=== PATIENT | female | born 1935 | race Caucasian/White ===

== ENCOUNTER 2019-08-30 01:35 | Observation (INO) | payer MEDICARE, MEDICAID, SELFPAY ==
[2019-08-30] VITALS (23 sets, daily range): BP systolic 98–194; BP diastolic 62–101; PULSE 84–119; RESP 14–25; TEMP 36.7–37.3; O2SAT 85–100; BMI 32.3
--- NOTE | 2019-08-30 01:46 | XR_ITS ---
WS: [id number] PORTABLE CHEST HISTORY: vomiting blood COMPARISON: 08/30/2019 Hyperexpanded lungs with slight elevation of the LEFT hemidiaphragm. No pneumonia. Normal vasculature . No pleural effusion or pneumothorax. Cardiac size: Normal. Mediastinum/Aorta: Mild atherosclerosis aorta. Osteopenia. High riding humeral heads. Increased air in the visualized GI tract in the upper abdomen. XR/XR chest 1V portable [id number] IMPRESSION: Chronic emphysema and ectatic thoracic aorta. No pneumonia.
--- NOTE | 2019-08-30 01:46 | CTR_ITS ---
PROCEDURE INFORMATION: Exam: CT Abdomen And Pelvis With Contrast Exam date and time: 08/30/2019 1:51 AM Age: 84 years old Clinical indication: Bloating; Additional info: Vomiting blood, bloated TECHNIQUE: Imaging protocol: Computed tomography of the abdomen and pelvis with intravenous contrast. Radiation optimization: All CT scans at this facility use at least one of these dose optimization techniques: automated exposure control; mA and/or kV adjustment per patient size (includes targeted exams where dose is matched to clinical indication); or iterative reconstruction. Contrast material: VISI; Contrast volume: 95 ml; Contrast route: INTRAVENOUS (IV); COMPARISON: No relevant prior studies available. RADIATION DOSE METRICS: Total DLP (mGy-cm): 1167.68 FINDINGS: Liver: No mass. Gallbladder and bile ducts: No calcified stones. No ductal dilation. Pancreas: No ductal dilation. Spleen: No splenomegaly. Adrenals: No mass. Kidneys and ureters: No hydronephrosis. Stomach and bowel: Distention of the colon, predominantly the rectosigmoid colon without evidence of obstruction. Findings may be due to ileus. Appendix: The appendix is not identified. Intraperitoneal space: No free air. No significant fluid collection. Vasculature: Atherosclerotic changes of the aorta. Lymph nodes: No enlarged lymph nodes. Bladder: Unremarkable as visualized. Reproductive: Status post hysterectomy. Bones/joints: Right hip prosthesis noted Multilevel degenerative changes noted. Soft tissues: Unremarkable. CT/CT abdomen pelvis w con* [id number] IMPRESSION: Distention of the colon, predominantly the rectosigmoid colon without evidence of obstruction. Findings may be due to ileus. Radiation Dose CTDIVOL = (mGy): DLP = 1167.68 (mGy-cm)
--- NOTE | 2019-08-30 01:48 | ED_ITS ---
Documented by User: PRIMO Pandey 08/30/19 01:49 HPI - GI Bleed General: Chief complaint: GI Bleed Stated complaint: UPPER GI BLEED Time Seen by Provider: 08/30/19 01:46 History of Present Illness: HPI Narrative: Patient arrives via ambulance with complaints of coffee-ground emesis earlier tonight states she has been sick she just coughed up some or vomited up some coffee-ground looking stuff denies any problems presently feels fine MD complaint: coffee ground emesis Onset (ago): minute(s) Associated symptoms: Reports no associated symptoms and vomiting; Denies abdominal pain, chills, easy bruising, fever(s), headache(s), nausea or rash Review of Systems Const: Denies: fever(s), chills or body aches Eyes: Denies: change in vision or blurry vision ENMT: Denies: throat pain or nasal congestion Card: Denies: chest pain or dyspnea on exertion Resp: Denies: dyspnea, productive cough or non-productive cough GI: Reports: vomiting and coffee ground emesis; Denies: abdominal pain or nausea Musc: Denies: extremity pain Skin/Breast: Denies: rash Neuro: Denies: headache(s) Psych: Denies: anxiety or depression David/Lymph: Denies: easy bruising PFSH ED PFSH: Medical History Atrial fibrillation Dementia Diabetes mellitus Currently diet controlled GERD (gastroesophageal reflux disease) Hypertension Iron deficiency Surgical History History of appendectomy Family History (Updated 08/30/19 @ 10:43 by Melissa Solares DO) Mother Diabetes Father Cancer Social History (Updated 08/30/19 @ 10:44 by Melissa Solares DO) Smoking and tobacco status: never smoked Alcohol intake: never Substance/Drug Use: never Lives independently: No Housing: Retirement Physical Exam Const: COMMON NORMALS: no acute distress, average body habitus and patient or iented x3 HENMT: COMMON NORMALS: normocephalic HEAD & SCALP: normal to inspection and normocephalic FACE & SINUS: normal facial exam Eye: COMMON NORMALS: conjunctivae normal GENERAL EYE: appearance normal, both eyes and all related structures CONJUNCTIVA: Yes conjunctivae normal Neck/C-Spine: COMMON NORMALS: no JVD Chest: COMMONS NORMALS: normal inspection of the chest Resp: COMMON NORMALS: normal respiratory effort and clear to auscultation bilaterally AUSCULTATION: clear to auscultation bilaterally Cardio: COMMON NORMALS: no JVD, regular rate and regular rhythm RATE: regular rate RHYTHM: regular rhythm GI: INSPECTION: Yes abdominal distension AUSCULTATION: Yes Hypoactive bowel sounds present PALPATION: Yes Firmness to palpation present (GI) PERCUSSION: tympanic to percussion Extremity: COMMON NORMALS: normal to inspection and full ROM Neuro: COMMON NORMALS: patient oriented x3 Course Vital Signs: Vital signs: Vital Signs Temperature 98.6 F 08/31/19 00:00 Pulse Rate 91 08/31/19 00:00 Respiratory Rate 20 H 08/31/19 00:00 Blood Pressure 138/70 08/31/19 00:00 Pulse Oximetry 96 08/31/19 00:00 MDM - GI Bleed Lab Data: Labs: Lab Results 08/30/19 08/30/19 08/30/19 Range/Units 01:43 01:43 01:43 WBC 12.3 H (4.0-10.0) 10^3/ uL RBC 4.50 (4.1-5.3) 10^6/u L Hgb 12.7 (11.5-15.3) g/dL Hct 38.9 (37.0-47.0) % MCV 86.4 (81-99) fL MCH 28.2 (28.0-34.0) pg MCHC 32.6 (30.0-36.0) g/dL RDW 14.1 (12.1-15.1) % Plt Count 275 (130-400) 10^3/c mm MPV 10.8 H (7.4-10.4) fL Neut % (Auto) 71.8 % Lymph % (Auto) 16.5 % [place] % (Auto) 9.4 % Eos % (Auto) 1.5 % Baso % (Auto) 0.5 % Neut # (Auto) 8.8 H (1.8-7.7) 10^3/u L Lymph # (Auto) 2.0 (0.8-4.8) 10^3/u L [place] # (Auto) 1.2 H (0.2-0.9) 10^3/u L Eos # (Auto) 0.2 (0.0-0.8) 10^3/u L Baso # (Auto) 0.1 (0.0-0.1) 10^3/u L Nucleated RBC % (a uto) 0 % Nucleated RBCs # 0.0 /100WBC PT 13.80 H (10.5-13.3) SECO NDS INR 1.03 (0.8-1.2) Sodium 136 (136-145) mmol/L Potassium 2.4 L* (3.5-5.1) mmol/L Chloride 96 L (98-107) mmol/L Carbon Dioxide 30 H (22-29) mmol/L Anion Gap 12.4 (5-19) BUN 17 (8-23) mg/dL Creatinine 0.7 (0.5-0.9) mg/dL Glucose 291 H (65-115) mg/dL Calculated Osmolal ity 289 (285-295) mOsm/k g Lactate (0.5-2.2) mmol/L Calcium 8.9 (8.5-10.5) mg/dL Total Bilirubin 0.3 (0.15-1.2) mg/dL AST 12 (0-32) U/L ALT 11 (0-33) U/L Alkaline Phosphata se 99 (35-105) IU/L Total Protein 6.8 (6.6-8.7) g/dL Albumin 3.8 (3.5-5.2) g/dL Globulin 3.0 (1.3-4.6) g/dL Urine Color (Yellow) Urine Appearance (CLEAR) Urine pH (5-7) Ur Specific Gravit y (1.005-1.030) Urine Protein (Negative) Urine Glucose (UA) (Normal) Urine Ketones (Negative) Urine Blood (Negative) Urine Nitrate (Negative) Urine Bilirubin (NEGATIVE) Urine Urobilinogen (Negative) mg/dL Ur Leukocyte Debbi ase (Negative) Urine RBC (0-2) /hpf Urine WBC (0-5) /hpf Ur Squamous Epith Cells (0-5) Amorphous Sediment Urine Bacteria (NONE) Rho(D) Type Antibody Screen 08/30/19 08/30/1908/29/20 Range/Units 01:43 01:45 03:24 WBC (4.0-10.0) 10^3/ uL RBC (4.1-5.3) 10^6/u L Hgb (11.5-15.3) g/dL Hct (37.0-47.0) % MCV (81-99) fL MCH (28.0-34.0) pg MCHC (30.0-36.0) g/dL RDW (12.1-15.1) % Plt Count (130-400) 10^3/c mm MPV (7.4-10.4) fL Neut % (Auto) % Lymph % (Auto) % [place] % (Auto) % Eos % (Auto) % Baso % (Auto) % Neut # (Auto) (1.8-7.7) 10^3/u L Lymph # (Auto) (0.8-4.8) 10^3/u L [place] # (Auto) (0.2-0.9) 10^3/u L Eos # (Auto) (0.0-0.8) 10^3/u L Baso # (Auto) (0.0-0.1) 10^3/u L Nucleated RBC % (a uto) % Nucleated RBCs # /100WBC PT (10.5-13.3) SECO NDS INR (0.8-1.2) Sodium (136-145) mmol/L Potassium (3.5-5.1) mmol/L Chloride (98-107) mmol/L Carbon Dioxide (22-29) mmol/L Anion Gap (5-19) BUN (8-23) mg/dL Creatinine (0.5-0.9) mg/dL Glucose (65-115) mg/dL Calculated Osmolal ity (285-295) mOsm/k g Lactate 1.5 (0.5-2.2) mmol/L Calcium (8.5-10.5) mg/dL Total Bilirubin (0.15-1.2) mg/dL AST (0-32) U/L ALT (0-33) U/L Alkaline Phosphata se (35-105) IU/L Total Protein (6.6-8.7) g/dL Albumin (3.5-5.2) g/dL Globulin (1.3-4.6) g/dL Urine Color Yellow (Yellow) Urine Appearance Cloudy (CLEAR) Urine pH 5 (5-7) Ur Specific Gravit y 1.015 (1.005-1.030) Urine Protein Neg (Negative) Urine Glucose (UA) 4+ H (Normal) Urine Ketones Negative (Negative) Urine Blood Neg (Negative) Urine Nitrate Negative (Negative) Urine Bilirubin Neg (NEGATIVE) Urine Urobilinogen Norm (Negative) mg/dL Ur Leukocyte Debbi ase Negative (Negative) Urine RBC 0-4 H (0-2) /hpf Urine WBC 0-4 H (0-5) /hpf Ur Squamous Epith Cells 10-15 H (0-5) Amorphous Sediment Not Reportable Urine Bacteria 2+ H (NONE) Rho(D) Type Negative Antibody Screen Negative 08/30/19 Range/Units 08:35 WBC (4.0-10.0) 10^3/ uL RBC (4.1-5.3) 10^6/u L Hgb (11.5-15.3) g/dL Hct (37.0-47.0) % MCV (81-99) fL MCH (28.0-34.0) pg MCHC (30.0-36.0) g/dL RDW (12.1-15.1) % Plt Count (130-400) 10^3/c mm MPV (7.4-10.4) fL Neut % (Auto) % Lymph % (Auto) % [place] % (Auto) % Eos % (Auto) % Baso % (Auto) % Neut # (Auto) (1.8-7.7) 10^3/u L Lymph # (Auto) (0.8-4.8) 10^3/u L [place] # (Auto) (0.2-0.9) 10^3/u L Eos # (Auto) (0.0-0.8) 10^3/u L Baso # (Auto) (0.0-0.1) 10^3/u L Nucleated RBC % (a uto) % Nucleated RBCs # /100WBC PT (10.5-13.3) SECO NDS INR (0.8-1.2) Sodium 138 (136-145) mmol/L Potassium 3.5 (3.5-5.1) mmol/L Chloride 101 (98-107) mmol/L Carbon Dioxide 29 (22-29) mmol/L Anion Gap 11.5 (5-19) BUN 16 (8-23) mg/dL Creatinine 0.7 (0.5-0.9) mg/dL Glucose 256 H (65-115) mg/dL Calculated Osmolal ity 291 (285-295) mOsm/k g Lactate (0.5-2.2) mmol/L Calcium 8.5 (8.5-10.5) mg/dL Total Bilirubin (0.15-1.2) mg/dL AST (0-32) U/L ALT (0-33) U/L Alkaline Phosphata se (35-105) IU/L Total Protein (6.6-8.7) g/dL Albumin (3.5-5.2) g/dL Globulin (1.3-4.6) g/dL Urine Color (Yellow) Urine Appearance (CLEAR) Urine pH (5-7) Ur Specific Gravit y (1.005-1.030) Urine Protein (Negative) Urine Glucose (UA) (Normal) Urine Ketones (Negative) Urine Blood (Negative) Urine Nitrate (Negative) Urine Bilirubin (NEGATIVE) Urine Urobilinogen (Negative) mg/dL Ur Leukocyte Debbi ase (Negative) Urine RBC (0-2) /hpf Urine WBC (0-5) /hpf Ur Squamous Epith Cells (0-5) Amorphous Sediment Urine Bacteria (NONE) Rho(D) Type Antibody Screen Discharge Plan Discharge Admit Provider: Melissa Solares Discharge Date/Time: 08/30/19 15:37 Sign Out Sign Out Data: Patient Sign Out occurred on 08/30/19 at 07:25. Patient's care was discussed, and care was transferred from to Ed Foster DO. Coding Level of Care Code ED Assistant Media Planner for Chg Fwd Exam Comprehensive Documented by User: Zaid Franco DO 08/30/19 06:10 HPI - GI Bleed General: Chief complaint: GI Bleed Stated complaint: UPPER GI BLEED Time Seen by Provider: 08/30/19 01:46 PFS ED PFSH: Medical History Atrial fibrillation Dementia Diabetes mellitus Currently diet controlled GERD (gastroesophageal reflux disease) Hypertension Iron deficiency Surgical History History of appendectomy Family History (Updated 08/30/19 @ 10:43 by Melissa Solares DO) Mother Diabetes Father Cancer Social History (Updated 08/30/19 @ 10:44 by Melissa Solares DO) Smoking and tobacco status: never smoked Alcohol intake: never Substance/Drug Use: never Lives independently: No Housing: Retirement Course Vital Signs: Vital signs: Vital Signs Temperature 98.6 F 08/31/19 00:00 Pulse Rate 91 08/31/19 00:00 Respiratory Rate 20 H 08/31/19 00:00 Blood Pressure 138/70 08/31/19 00:00 Pulse Oximetry 96 08/31/19 00:00 MDM - GI Bleed MDM Narrative: Medical decision making narrative: 84-year-old female checked out to me by PRIMO Sherman. I have seen the patient as well. The complaint from the long term was possibly some coffee-ground type emesis. She is not vomited since she has been here. Her belly is quite rotund and distended. It is not overly tender. Her potassium is 2.4. She has a mild leukocytosis. Her potassium is being repleted with 40 mEq of KCl IV. CT reveals a very largely distended rectosigmoid colon without definite evidence of mechanical obstruction. NG tube is been placed. She is getting an enema in the ER. If this produces results, and distention appears on KUB with improvement in her potassium, she will likely go back to the long term. Repeat BMP is due at 7am when KCL is finished. She has received enemax1 ordering milk and molases. She'll be checked out to Dr. Foster at shift change. Lab Data: Labs: Lab Results 08/30/19 08/30/19 08/30/19 Range/Units 01:43 01:43 01:43 WBC 12.3 H (4.0-10.0) 10^3/ uL RBC 4.50 (4.1-5.3) 10^6/u L Hgb 12.7 (11.5-15.3) g/dL Hct 38.9 (37.0-47.0) % MCV 86.4 (81-99) fL MCH 28.2 (28.0-34.0) pg MCHC 32.6 (30.0-36.0) g/dL RDW 14.1 (12.1-15.1) % Plt Count 275 (130-400) 10^3/c mm MPV 10.8 H (7.4-10.4) fL Neut % (Auto) 71.8 % Lymph % (Auto) 16.5 % [place] % (Auto) 9.4 % Eos % (Auto) 1.5 % Baso % (Auto) 0.5 % Neut # (Auto) 8.8 H (1.8-7.7) 10^3/u L Lymph # (Auto) 2.0 (0.8-4.8) 10^3/u L [place] # (Auto) 1.2 H (0.2-0.9) 10^3/u L Eos # (Auto) 0.2 (0.0-0.8) 10^3/u L Baso # (Auto) 0.1 (0.0-0.1) 10^3/u L Nucleated RBC % (a uto) 0 % Nucleated RBCs # 0.0 /100WBC PT 13.80 H (10.5-13.3) SECO NDS INR 1.03 (0.8-1.2) Sodium 136 (136-145) mmol/L Potassium 2.4 L* (3.5-5.1) mmol/L Chloride 96 L (98-107) mmol/L Carbon Dioxide 30 H (22-29) mmol/L Anion Gap 12.4 (5-19) BUN 17 (8-23) mg/dL Creatinine 0.7 (0.5-0.9) mg/dL Glucose 291 H (65-115) mg/dL Calculated Osmolal ity 289 (285-295) mOsm/k g Lactate (0.5-2.2) mmol/L Calcium 8.9 (8.5-10.5) mg/dL Total Bilirubin 0.3 (0.15-1.2) mg/dL AST 12 (0-32) U/L ALT 11 (0-33) U/L Alkaline Phosphata se 99 (35-105) IU/L Total Protein 6.8 (6.6-8.7) g/dL Albumin 3.8 (3.5-5.2) g/dL Globulin 3.0 (1.3-4.6) g/dL Urine Color (Yellow) Urine Appearance (CLEAR) Urine pH (5-7) Ur Specific Gravit y (1.005-1.030) Urine Protein (Negative) Urine Glucose (UA) (Normal) Urine Ketones (Negative) Urine Blood (Negative) Urine Nitrate (Negative) Urine Bilirubin (NEGATIVE) Urine Urobilinogen (Negative) mg/dL Ur Leukocyte Debbi ase (Negative) Urine RBC (0-2) /hpf Urine WBC (0-5) /hpf Ur Squamous Epith Cells (0-5) Amorphous Sediment Urine Bacteria (NONE) Rho(D) Type Antibody Screen 08/30/19 08/30/19 08/30/19 Range/Units 01:43 01:45 03:24 WBC (4.0-10.0) 10^3/ uL RBC (4.1-5.3) 10^6/u L Hgb (11.5-15.3) g/dL Hct (37.0-47.0) % MCV (81-99) fL MCH (28.0-34.0) pg MCHC (30.0-36.0) g/dL RDW (12.1-15.1) % Plt Count (130-400) 10^3/c mm MPV (7.4-10.4) fL Neut % (Auto) % Lymph % (Auto) % [place] % (Auto) % Eos % (Auto) % Baso % (Auto) % Neut # (Auto) (1.8-7.7) 10^3/u L Lymph # (Auto) (0.8-4.8) 10^3/u L [place] # (Auto) (0.2-0.9) 10^3/u L Eos # (Auto) (0.0-0.8) 10^3/u L Baso # (Auto) (0.0-0.1) 10^3/u L Nucleated RBC % (a uto) % Nucleated RBCs # /100WBC PT (10.5-13.3) SECO NDS INR (0.8-1.2) Sodium (136-145) mmol/L Potassium (3.5-5.1) mmol/L Chloride (98-107) mmol/L Carbon Dioxide (22-29) mmol/L Anion Gap (5-19) BUN (8-23) mg/dL Creatinine (0.5-0.9) mg/dL Glucose (65-115) mg/dL Calculated Osmolal ity (285-295) mOsm/k g Lactate 1.5 (0.5-2.2) mmol/L Calcium (8.5-10.5) mg/dL Total Bilirubin (0.15-1.2) mg/dL AST (0-32) U/L ALT (0-33) U/L Alkaline Phosphata se (35-105) IU/L Total Protein (6.6-8.7) g/dL Albumin (3.5-5.2) g/dL Globulin (1.3-4.6) g/dL Urine Color Yellow (Yellow) Urine Appearance Cloudy (CLEAR) Urine pH 5 (5-7) Ur Specific Gravit y 1.015 (1.005-1.030) Urine Protein Neg (Negative) Urine Glucose (UA) 4+ H (Normal) Urine Ketones Negative (Negative) Urine Blood Neg (Negative) Urine Nitrate Negative (Negative) Urine Bilirubin Neg (NEGATIVE) Urine Urobilinogen Norm (Negative) mg/dL Ur Leukocyte Debbi ase Negative (Negative) Urine RBC 0-4 H (0-2) /hpf Urine WBC 0-4 H (0-5) /hpf Ur Squamous Epith Cells 10-15 H (0-5) Amorphous Sediment Not Reportable Urine Bacteria 2+ H (NONE) Rho(D) Type Negative Antibody Screen Negative 08/30/19 Range/Units 08:35 WBC (4.0-10.0) 10^3/ uL RBC (4.1-5.3) 10^6/u L Hgb (11.5-15.3) g/dL Hct (37.0-47.0) % MCV (81-99) fL MCH (28.0-34.0) pg MCHC (30.0-36.0) g/dL RDW (12.1-15.1) % Plt Count (130-400) 10^3/c mm MPV (7.4-10.4) fL Neut % (Auto) % Lymph % (Auto) % [place] % (Auto) % Eos % (Auto) % Baso % (Auto) % Neut # (Auto) (1.8-7.7) 10^3/u L Lymph # (Auto) (0.8-4.8) 10^3/u L [place] # (Auto) (0.2-0.9) 10^3/u L Eos # (Auto) (0.0-0.8) 10^3/u L Baso # (Auto) (0.0-0.1) 10^3/u L Nucleated RBC % (a uto) % Nucleated RBCs # /100WBC PT (10.5-13.3) SECO NDS INR (0.8-1.2) Sodium 138 (136-145) mmol/L Potassium 3.5 (3.5-5.1) mmol/L Chloride 101 (98-107) mmol/L Carbon Dioxide 29 (22-29) mmol/L Anion Gap 11.5 (5-19) BUN 16 (8-23) mg/dL Creatinine 0.7 (0.5-0.9) mg/dL Glucose 256 H (65-115) mg/dL Calculated Osmolal ity 291 (285-295) mOsm/k g Lactate (0.5-2.2) mmol/L Calcium 8.5 (8.5-10.5) mg/dL Total Bilirubin (0.15-1.2) mg/dL AST (0-32) U/L ALT (0-33) U/L Alkaline Phosphata se (35-105) IU/L Total Protein (6.6-8.7) g/dL Albumin (3.5-5.2) g/dL Globulin (1.3-4.6) g/dL Urine Color (Yellow) Urine Appearance (CLEAR) Urine pH (5-7) Ur Specific Gravit y (1.005-1.030) Urine Protein (Negative) Urine Glucose (UA) (Normal) Urine Ketones (Negative) Urine Blood (Negative) Urine Nitrate (Negative) Urine Bilirubin (NEGATIVE) Urine Urobilinogen (Negative) mg/dL Ur Leukocyte Debbi ase (Negative) Urine RBC (0-2) /hpf Urine WBC (0-5) /hpf Ur Squamous Epith Cells (0-5) Amorphous Sediment Urine Bacteria (NONE) Rho(D) Type Antibody Screen Discharge Plan Discharge Admit Provider: Melissa Solares Discharge Date/Time: 08/30/19 15:37 Sign Out Sign Out Data: Patient Sign Out occurred on 08/30/19 at 07:25. Patient's care was discussed, and care was transferred from to Ed Foster DO. Coding Level of Care Code ED Assistant Media Planner for Chg Fwd Exam Comprehensive Documented by User: Ed Foster DO 08/31/19 06:05 HPI - GI Bleed General: Chief complaint: GI Bleed Stated complaint: UPPER GI BLEED Time Seen by Provider: 08/30/19 01:46 PFS ED PFSH: Medical History Atrial fibrillation Dementia Diabetes mellitus Currently diet controlled GERD (gastroesophageal reflux disease) Hypertension Iron deficiency Surgical History History of appendectomy Family History (Updated 08/30/19 @ 10:43 by Melissa Solares DO) Mother Diabetes Father Cancer Social History (Updated 08/30/19 @ 10:44 by Melissa Solares DO) Smoking and tobacco status: never smoked Alcohol intake: never Substance/Drug Use: never Lives independently: No Housing: Retirement Course Vital Signs: Vital signs: Vital Signs Temperature 98.6 F 08/31/19 00:00 Pulse Rate 91 08/31/19 00:00 Respiratory Rate 20 H 08/31/19 00:00 Blood Pressure 138/70 08/31/19 00:00 Pulse Oximetry 96 08/31/19 00:00 MDM - GI Bleed MDM Narrative: Medical decision making narrative: NG and enemas did not decompress the abdomen. Is to have potassium is increased. We will go ahead and put her on [place] with a rectal tube discussed with hospitalist and general surgery they are both in agreement orders written. Lab Data: Labs: Lab Results 08/30/19 08/30/19 08/30/19 Range/Units 01:43 01:43 01:43 WBC 12.3 H (4.0-10.0) 10^3/ uL RBC 4.50 (4.1-5.3) 10^6/u L Hgb 12.7 (11.5-15.3) g/dL Hct 38.9 (37.0-47.0) % MCV 86.4 (81-99) fL MCH 28.2 (28.0-34.0) pg MCHC 32.6 (30.0-36.0) g/dL RDW 14.1 (12.1-15.1) % Plt Count 275 (130-400) 10^3/c mm MPV 10.8 H (7.4-10.4) fL Neut % (Auto) 71.8 % Lymph % (Auto) 16.5 % [place] % (Auto) 9.4 % Eos % (Auto) 1.5 % Baso % (Auto) 0.5 % Neut # (Auto) 8.8 H (1.8-7.7) 10^3/u L Lymph # (Auto) 2.0 (0.8-4.8) 10^3/u L [place] # (Auto) 1.2 H (0.2-0.9) 10^3/u L Eos # (Auto) 0.2 (0.0-0.8) 10^3/u L Baso # (Auto) 0.1 (0.0-0.1) 10^3/u L Nucleated RBC % (a uto) 0 % Nucleated RBCs # 0.0 /100WBC PT 13.80 H (10.5-13.3) SECO NDS INR 1.03 (0.8-1.2) Sodium 136 (136-145) mmol/L Potassium 2.4 L* (3.5-5.1) mmol/L Chloride 96 L (98-107) mmol/L Carbon Dioxide 30 H (22-29) mmol/L Anion Gap 12.4 (5-19) BUN 17 (8-23) mg/dL Creatinine 0.7 (0.5-0.9) mg/dL Glucose 291 H (65-115) mg/dL Calculated Osmolal ity 289 (285-295) mOsm/k g Lactate (0.5-2.2) mmol/L Calcium 8.9 (8.5-10.5) mg/dL Total Bilirubin 0.3 (0.15-1.2) mg/dL AST 12 (0-32) U/L ALT 11 (0-33) U/L Alkaline Phosphata se 99 (35-105) IU/L Total Protein 6.8 (6.6-8.7) g/dL Albumin 3.8 (3.5-5.2) g/dL Globulin 3.0 (1.3-4.6) g/dL Urine Color (Yellow) Urine Appearance (CLEAR) Urine pH (5-7) Ur Specific Gravit y (1.005-1.030) Urine Protein (Negative) Urine Glucose (UA) (Normal) Urine Ketones (Negative) Urine Blood (Negative) Urine Nitrate (Negative) Urine Bilirubin (NEGATIVE) Urine Urobilinogen (Negative) mg/dL Ur Leukocyte Debbi ase (Negative) Urine RBC (0-2) /hpf Urine WBC (0-5) /hpf Ur Squamous Epith Cells (0-5) Amorphous Sediment Urine Bacteria (NONE) Rho(D) Type Antibody Screen 08/30/19 08/30/19 08/30/19 Range/Units 01:43 01:45 03:24 WBC (4.0-10.0) 10^3/ uL RBC (4.1-5.3) 10^6/u L Hgb (11.5-15.3) g/dL Hct (37.0-47.0) % MCV (81-99) fL MCH (28.0-34.0) pg MCHC (30.0-36.0) g/dL RDW (12.1-15.1) % Plt Count (130-400) 10^3/c mm MPV (7.4-10.4) fL Neut % (Auto) % Lymph % (Auto) % [place] % (Auto) % Eos % (Auto) % Baso % (Auto) % Neut # (Auto) (1.8-7.7) 10^3/u L Lymph # (Auto) (0.8-4.8) 10^3/u L [place] # (Auto) (0.2-0.9) 10^3/u L Eos # (Auto) (0.0-0.8) 10^3/u L Baso # (Auto) (0.0-0.1) 10^3/u L Nucleated RBC % (a uto) % Nucleated RBCs # /100WBC PT (10.5-13.3) SECO NDS INR (0.8-1.2) Sodium (136-145) mmol/L Potassium (3.5-5.1) mmol/L Chloride (98-107) mmol/L Carbon Dioxide (22-29) mmol/L Anion Gap (5-19) BUN (8-23) mg/dL Creatinine (0.5-0.9) mg/dL Glucose (65-115) mg/dL Calculated Osmolal ity (285-295) mOsm/k g Lactate 1.5 (0.5-2.2) mmol/L Calcium (8.5-10.5) mg/dL Total Bilirubin (0.15-1.2) mg/dL AST (0-32) U/L ALT (0-33) U/L Alkaline Phosphata se (35-105) IU/L Total Protein (6.6-8.7) g/dL Albumin (3.5-5.2) g/dL Globulin (1.3-4.6) g/dL Urine Color Yellow (Yellow) Urine Appearance Cloudy (CLEAR) Urine pH 5 (5-7) Ur Specific Gravit y 1.015 (1.005-1.030) Urine Protein Neg (Negative) Urine Glucose (UA) 4+ H (Normal) Urine Ketones Negative (Negative) Urine Blood Neg (Negative) Urine Nitrate Negative (Negative) Urine Bilirubin Neg (NEGATIVE) Urine Urobilinogen Norm (Negative) mg/dL Ur Leukocyte Debbi ase Negative (Negative) Urine RBC 0-4 H (0-2) /hpf Urine WBC 0-4 H (0-5) /hpf Ur Squamous Epith Cells 10-15 H (0-5) Amorphous Sediment Not Reportable Urine Bacteria 2+ H (NONE) Rho(D) Type Negative Antibody Screen Negative 08/30/19 Range/Units 08:35 WBC (4.0-10.0) 10^3/ uL RBC (4.1-5.3) 10^6/u L Hgb (11.5-15.3) g/dL Hct (37.0-47.0) % MCV (81-99) fL MCH (28.0-34.0) pg MCHC (30.0-36.0) g/dL RDW (12.1-15.1) % Plt Count (130-400) 10^3/c mm MPV (7.4-10.4) fL Neut % (Auto) % Lymph % (Auto) % [place] % (Auto) % Eos % (Auto) % Baso % (Auto) % Neut # (Auto) (1.8-7.7) 10^3/u L Lymph # (Auto) (0.8-4.8) 10^3/u L [place] # (Auto) (0.2-0.9) 10^3/u L Eos # (Auto) (0.0-0.8) 10^3/u L Baso # (Auto) (0.0-0.1) 10^3/u L Nucleated RBC % (a uto) % Nucleated RBCs # /100WBC PT (10.5-13.3) SECO NDS INR (0.8-1.2) Sodium 138 (136-145) mmol/L Potassium 3.5 (3.5-5.1) mmol/L Chloride 101 (98-107) mmol/L Carbon Dioxide 29 (22-29) mmol/L Anion Gap 11.5 (5-19) BUN 16 (8-23) mg/dL Creatinine 0.7 (0.5-0.9) mg/dL Glucose 256 H (65-115) mg/dL Calculated Osmolal ity 291 (285-295) mOsm/k g Lactate (0.5-2.2) mmol/L Calcium 8.5 (8.5-10.5) mg/dL Total Bilirubin (0.15-1.2) mg/dL AST (0-32) U/L ALT (0-33) U/L Alkaline Phosphata se (35-105) IU/L Total Protein (6.6-8.7) g/dL Albumin (3.5-5.2) g/dL Globulin (1.3-4.6) g/dL Urine Color (Yellow) Urine Appearance (CLEAR) Urine pH (5-7) Ur Specific Gravit y (1.005-1.030) Urine Protein (Negative) Urine Glucose (UA) (Normal) Urine Ketones (Negative) Urine Blood (Negative) Urine Nitrate (Negative) Urine Bilirubin (NEGATIVE) Urine Urobilinogen (Negative) mg/dL Ur Leukocyte Debbi ase (Negative) Urine RBC (0-2) /hpf Urine WBC (0-5) /hpf Ur Squamous Epith Cells (0-5) Amorphous Sediment Urine Bacteria (NONE) Rho(D) Type Antibody Screen Discharge Plan Discharge Admit Provider: Melissa Solares Discharge Date/Time: 08/30/19 15:37 Sign Out Sign Out Data: Patient Sign Out occurred on 08/30/19 at 07:25. Patient's care was discussed, and care was transferred from to Ed Foster DO. Coding Level of Care Code ED Assistant Media Planner for [employer] Fwd Exam Comprehensive
--- NOTE | 2019-08-30 01:49 | ECG_ITS ---
[facility] Test Date: 2019-08-30 Pat Name: Theresa Bronwlee Department: Room: Gender: Female Weigher Packing: : [id number] Requested By: Evans Eng Order Number: [id number] Angelina MD: Fer Green M.D. Measurements Intervals [place] Rate: 102 P: MS: -1 QRS: 19 QRSD: 103 T: -24 QT: 380 QTc: 497 Interpretive Statements ATRIAL FIBRILLATION WITH RAPID VENTRICULAR RESPONSE NONSPECIFIC ST & T-WAVE ABNORMALITY ABNORMAL RHYTHM ECG No previous ECG available for comparison Electronically Signed On 08-30-2019 16:54:36 CDT by Fer Green M.D. [email or web address]
[2019-08-30 02:10] LABS: Basophils # 0.1 10^3/uL (0.0-0.1); Basophils % 0.5 %; Eosinophils # 0.2 10^3/uL (0.0-0.8); Eosinophils % 1.5 %; Hematocrit 38.9 % (37.0-47.0); Hemoglobin 12.7 g/dL (11.5-15.3); Lymphocytes % 16.5 %; Mean Corpuscular HGB Conc 32.6 g/dL (30.0-36.0); Mean Corpuscular Hemoglobin 28.2 pg (28.0-34.0); Mean Corpuscular Volume 86.4 fL (81-99); Mean Platelet Volume 10.8 fL (7.4-10.4); Monocytes # 1.2 10^3/uL (0.2-0.9); Monocytes % 9.4 %; Neutrophils # 8.8 10^3/uL (1.8-7.7); Neutrophils % 71.8 %; Nucleated Red Blood Cells % 0 %; Platelet Count 275 10^3/cmm (130-400); Red Cell Distribution Width 14.1 % (12.1-15.1); White Blood Count 12.3 10^3/uL (4.0-10.0)
[2019-08-30 02:18] LABS: INR 1.03 (0.8-1.2)
[2019-08-30 02:22] LABS: Lactate (Lactic Acid level) 1.5 mmol/L (0.5-2.2)
[2019-08-30 02:23] LABS: Alanine Aminotransferase 11 U/L (0-33); Albumin Level 3.8 g/dL (3.5-5.2); Alkaline Phosphatase 99 IU/L (35-105); Anion Gap 12.4 (5-19); Aspartate Amino Transferase 12 U/L (0-32); Blood Urea Nitrogen 17 mg/dL (8-23); Calcium 8.9 mg/dL (8.5-10.5); Carbon Dioxide 30 mmol/L (22-29); Chloride 96 mmol/L (98-107); Creatinine Clr Calc Pharmacy 59.3903; Glucose 291 mg/dL (65-115); Osmolality Calculated 289 mOsm/kg (285-295); Sodium 136 mmol/L (136-145); Total Bilirubin 0.3 mg/dL (0.15-1.2); Total Protein 6.8 g/dL (6.6-8.7)
[2019-08-30 02:25] LABS: Potassium 2.4 mmol/L (3.5-5.1)
[2019-08-30] MEDS: iodixanol 320 mg/mL 100mL Btl IV (02:48)
[2019-08-30] MEDS: sodium chloride 0.9% 1,000 ML 75 ML IV ×2 (02:56→13:01)
[2019-08-30] MEDS: potassium chloride premix 40 MEQ/100 ML PREMIX 25 MEQ IV (02:57)
[2019-08-30] MEDS: cetacaine Spray 5 gm Can 1 SPRAY TOPICAL (03:44)
[2019-08-30 03:56] LABS: Protein Urine Neg (Negative); Specific Gravity, Urine 1.015 (1.005-1.030); Urine Appearance Cloudy (CLEAR); Urine Color Yellow (Yellow); pH Urine 5 (5-7)
[2019-08-30 03:57] LABS: Add Urine Culture? Yes; Add Urine Microscopic? YES; Bacteria Urine 2+; Bilirubin Urine Neg (NEGATIVE); Blood Urine Neg (Negative); Glucose Urine UA 4+ (Normal); Ketones Urine Negative (Negative); Leukocyte Esterase Urine Negative (Negative); Nitrate Urine Negative (Negative); RBC Urine 0-4 /hpf (0-2); Urobilinogen Urine Norm (Negative); WBC Urine 0-4 /hpf (0-5)
--- NOTE | 2019-08-30 03:57 | XR_ITS ---
WS: [id number] CHEST, 1 view. HISTORY: ng placement COMPARISON: 08/30/2019 Nasogastric tube is in good position with tip extending below the GE junction. Slight elevation of the LEFT hemidiaphragm. In part this is due to a markedly distended colon with ai r. No pneumonia. No pleural effusion or pneumothorax. Cardiac size: Normal. Mediastinum/Aorta: Mild atherosclerosis aorta. Osteopenia. XR/XR chest 1V 13610 IMPRESSION: 1. Satisfactory placement of the nasogastric tube. 2. Slight elevation LEFT hemidiaphragm. 3. Ectatic thoracic aorta. 4. Marked gaseous distention of the GI tract was utilized in the upper abdomen .
[2019-08-30] MEDS: mineral oil ENEMA 133 mL PR (05:22)
--- NOTE | 2019-08-30 07:02 | PC.NURSE ---
Patient had a small bowel movement at 0655. Patient cleaned by nurses.
--- NOTE | 2019-08-30 07:45 | PC.NURSE ---
WHILE AT BEDSIDE PT IS IN NAD. PT IS RESTING QUIETLY WITH EYES CLOSED IN NAD.
--- NOTE | 2019-08-30 07:48 | PC.NURSE ---
INFORMED DR. GAMBLE OF L NS INFUSED. VERBALIZED NO FURTHER MAINTENANCE FLUIDS
--- NOTE | 2019-08-30 08:28 | XR_ITS ---
WS: [id number] ABDOMEN 1 VIEW(S) HISTORY: abd pain COMPARISON: None available. Nasogastric tube has been placed with tip directed towards the antrum of the stomach. Continued diste ntion of the GI tract with air. No focal transition identified. No suspicious calcifications or masses. Osteopenia. Prior RIGHT hip replacement. XR/XR KUB 10788 IMPRESSION: 1. Satisfactory placement of a nasogastric tube. 2. Suspect ileus.
--- NOTE | 2019-08-30 08:36 | PC.NURSE ---
Patients blood drawn at this time via straight stick using butterfly needle in the right forearm. Blood work sent to lab at this time.
--- NOTE | 2019-08-30 08:44 | PC.NURSE ---
PORTABLE XRAY BEING PERFORMED AT BEDSIDE.
[2019-08-30 09:27] LABS: Anion Gap 11.5 (5-19); Blood Urea Nitrogen 16 mg/dL (8-23); Calcium 8.5 mg/dL (8.5-10.5); Carbon Dioxide 29 mmol/L (22-29); Chloride 101 mmol/L (98-107); Creatinine Clr Calc Pharmacy 59.3903; Glucose 256 mg/dL (65-115); Osmolality Calculated 291 mOsm/kg (285-295); Potassium 3.5 mmol/L (3.5-5.1); Sodium 138 mmol/L (136-145)
--- NOTE | 2019-08-30 10:06 | PC.NURSE ---
COMPLETE BED CHANGE PERFORMED DT INCONTINENCE OF BOWEL AND BLADDER.
--- NOTE | 2019-08-30 10:37 | PM.HP ---
Providers/Chief Complaint Admitting Physician: Melissa Solares DO Primary Care Provider: Dr. Tri Esparza Chief Complaint: UPPER GI BLEED History of Present Illness Theresa Brownlee is a 84 year old female with a past medical history of chronic dysphasia, hypertension, atrial fibrillation, iron deficiency and diabetes as well as dementia that presented to the emergency department today for abdominal distention and reported coffee-ground emesis at the nursing facility. Patient was seen and evaluated in the emergency department due to concern for coffee-ground emesis and abdominal distention CT scan of the abdomen and pelvis was performed which showed colonic ileus. Patient was kept n.p.o. She was initially noted to be hypokalemic, she did not have any further coffee-ground emesis and no concern for melanotic stools or GI bleed. Hemoglobin was stable. At time of my exam patient's son is at bedside, Heraclio, patient denies any abdominal discomfort, no nausea or vomiting. Discussed with patient concern for ileus with abdominal distention, and plan to watch patient overnight on observation. Patient and son verbalized understanding and agreed with plan. Review of Systems Const: Denies: fever(s) or chills Eyes: Denies: change in vision ENMT: Denies: nasal congestion Card: Denies: chest pain, palpitations or edema Resp: Denies: dyspnea, productive cough or hemoptysis GI: Reports: other (Abdominal distention); Denies: abdominal pain, nausea, vomiting, diarrhea, constipation, hematochezia or melena : Denies: dysuria or hematuria Musc: Denies: extremity pain or muscle cramps Skin/Breast: Denies: rash or new lesions Neuro: Denies: headache(s) or dizziness Psych: Denies: anxiety or depression Endo: Denies: polyuria or hot flashes David/Lymph: Denies: easy bruising or easy bleeding Medications/Allergies Home Medications Medication Instructions Recorded Confirmed Last Taken Type Mylantex Double-Strength 400-4 30 ml PO PRN 08/30/19 08/30/19 Unknown History acetaminophen 500 mg PO TID 08/30/19 08/30/19 08/29/19 History acetaminophen [Tylenol] 325 mg PO Q4H PRN 08/30/19 08/30/19 Unknown History aspirin [Aspir-81] 81 mg PO DAILY 08/30/19 08/30/1908/28/20 History bisacodyl 10 mg PO DAILY PRN 08/30/19 08/30/19 Unknown History carboxymethylcellulose sodium See Rx Instructions .ROUTE .COMPLEX 08/30/19 08/30/19 Unknown History [Refresh Tears] diltiazem HCl 15 mg PO TID 08/30/19 08/30/19 08/29/19 History loratadine See Rx Instructions .ROUTE .COMPLEX 08/30/19 08/30/19 08/29/19 History losartan 50 mg PO DAILY 08/30/19 08/30/19 08/29/19 History magnesium hydroxide [Milk Of 30 ml PO DAILY PRN 08/30/19 08/30/19 Unknown History Magnesia Concentrated] memantine [Namenda] 10 mg PO BID 08/30/19 08/30/19 08/29/19 History nut.tx,spec.frm,l-fr,iron-fos 1 ea PO TID 08/30/19 08/30/19 08/29/19 History [TwoCal HN] sennosides-docusate sodium 1 tab-cap PO DAILY 08/30/19 08/30/19 08/29/19 History Allergies Allergy/AdvReac Type Severity Reaction Status Date / Time ciprofloxacin [From Cipro] Allergy Unknown Verified 08/30/19 08:43 PFSH Acute PFSH: Medical History Atrial fibrillation Dementia Diabetes mellitus Currently diet controlled GERD (gastroesophageal reflux disease) Hypertension Iron deficiency Surgical History History of appendectomy Family History (Updated 08/30/19 @ 10:43 by Melissa Solares DO) Mother Diabetes Father Cancer Social History (Updated 08/30/19 @ 10:44 by Melissa Solares DO) Smoking and tobacco status: never smoked Alcohol intake: never Substance/Drug Use: never Lives independently: No Housing: Skilled Nursing Vitals/I&O/Wt Last Vital Signs Temp 98.1 F 08/30/19 01:36 Pulse 94 08/30/19 10:00 Resp 19 H 08/30/19 10:00 BP 181/101 08/30/19 10:00 Pulse Ox 95 08/30/19 10:00 08/29/19 08/30/19 08/30/19 22:59 06:59 14:59 Intake Total 1100 / 1100 Balance 1100 / 1100 Weight last 48 hrs Weight 90.718 kg Physical Exam Const: COMMON NORMALS: alert GENERAL APPEARANCE: cooperative ORIENTATION/CONSCIOUSNESS: Yes awake, Yes oriented to person and Yes confused OTHER: Pleasantly confused HENMT: COMMON NORMALS: normocephalic and atraumatic HEAD & SCALP: normocephalic and atraumatic Eye: COMMON NORMALS: Equal, round and reactive pupils present PUPIL: Yes Equal, round and reactive pupils present Neck/C-Spine: COMMON NORMALS: supple GENERAL: Yes normal visual inspection Resp: COMMON NORMALS: normal respiratory effort and clear to auscultation bilaterally EFFORT & INSPECTION: Yes able to speak in complete sentences AUSCULTATION: clear to auscultation bilaterally, no rhonchi and no wheezes Cardio: OTHER: Irregularly irregular GI: INSPECTION: Yes abdominal distension PALPATION: Yes Soft to palpation OTHER: Firm, abdominal distention with no tenderness to palpation throughout the anterior abdomen, normal bowel sounds : COMMON NORMALS: Yes no CVA tenderness BLADDER/KIDNEY EXAM: Yes no CVA tenderness Back/Pelvis: COMMON NORMALS: no CVA tenderness Extremity: COMMON NORMALS: no clubbing, cyanosis or edema and no calf tenderness Neuro: COMMON NORMALS: patient oriented x3, CN's II-XII intact bilaterally, moves all extremities and no focal motor deficits SENSORIUM/ORIENTATION: Yes alert and Yes oriented to person SPEECH: speech normal OTHER: Pleasantly confused Psych: COMMON NORMALS: cooperative OTHER: Underlying dementia, at baseline Skin: OTHER: Chronic erythema in the lower extremities bilaterally without any acute infectious process Data : 08/30/19 01:43 08/30/19 08:35 CT Abd/Pel: I personally reviewed and interpreted this imaging study as follows: Radiologist's impression: FINDINGS: Liver: No mass. Gallbladder and bile ducts: No calcified stones. No ductal dilation. Pancreas: No ductal dilation. Spleen: No splenomegaly. Adrenals: No mass. Kidneys and ureters: No hydronephrosis. Stomach and bowel: Distention of the colon, predominantly the rectosigmoid colon without evidence of obstruction. Findings may be due to ileus. Appendix: The appendix is not identified. Intraperitoneal space: No free air. No significant fluid collection. Vasculature: Atherosclerotic changes of the aorta. Lymph nodes: No enlarged lymph nodes. Bladder: Unremarkable as visualized. Reproductive: Status post hysterectomy. Bones/joints: Right hip prosthesis noted Multilevel degenerative changes noted. Soft tissues: Unremarkable. CT/CT abdomen pelvis w con* [id number] IMPRESSION: Distention of the colon, predominantly the rectosigmoid colon without evidence of obstruction. Findings may be due to ileus. CXR: I personally reviewed and interpreted this imaging study as follows: Radiologist's impression: IMPRESSION: 1. Satisfactory placement of the nasogastric tube. 2. Slight elevation LEFT hemidiaphragm. 3. Ectatic thoracic aorta. 4. Marked gaseous distention of the GI tract was utilized in the upper abdomen. KUB: I personally reviewed and interpreted this imaging study as follows: Radiologist's impression: Nasogastric tube has been placed with tip directed towards the antrum of the stomach. Continued distention of the GI tract with air. No focal transition identified. No suspicious calcifications or masses. Osteopenia. Prior RIGHT hip replacement. XR/XR KUB [id number] IMPRESSION: 1. Satisfactory placement of a nasogastric tube. 2. Suspect ileus A&P Assessment and plan (1) Ileus: Patient with colonic ileus, finding on CT scan of the abdomen and pelvis and again on repeat KUB. NG tube placed in the ED, rectal tube placed in the ED. Patient denies any abdominal pain or discomfort at time of exam in the ED. We will continue to monitor with close observation with repeat KUB in the morning. Case was discussed with surgical team, will consider consultation if indicated. N.p.o. at this time Status: Acute (2) Atrial fibrillation: Patient with known atrial fibrillation, continue Cardizem every 8 hours as previously scheduled Patient is not on any type of anticoagulation, only aspirin 81 mg daily, holding today but restart tomorrow if no concern for any GI bleed Status: Acute (3) Hypertension: With elevated blood pressure in the ED, has not had home medications including losartan 50 mg, will administer at this time and continue to monitor closely with that and Cardizem PRN hydralazine as needed for elevated blood pressure Status: Acute (4) GERD (gastroesophageal reflux disease): Started on PPI daily Status: Acute (5) Dementia: Mental status appears to be at baseline according to son Heraclio, at bedside Status: Acute (6) Diabetes mellitus: Patient previously on Januvia and metformin, recently taken off of medications We will continue to monitor blood sugar closely with low-dose sliding scale insulin as needed Status: Acute Additional A&P Information Concern for coffee-ground emesis at [facility] facility, no evidence of any bleeding at this time, no melanotic stools or concern for GI bleed. Started on oral Protonix. We will continue to watch hemoglobin closely. Patient is on aspirin 81 mg at home, holding at this time and plan to restart tomorrow if no concern for continued bleeding Hypokalemia: Secondary to GI losses, this is now improved and resolved DVT prophylaxis: SCDs, no pharmacologic prophylaxis due to concern for coffee-ground emesis prior to arrival Diet: N.p.o. CODE STATUS: DNR/DNI Attestations Medical Necessity Statement*: Observation placement due to concern for abdominal pain and distention due to colonic ileus. Expected stay less than 2 midnights. Coding Level of Care Code Acute Physicist [employer] for g Fwd Diagnoses Ileus K56.7 Atrial fibrillation I48.91 Hypertension I10 GERD (gastroesophageal reflux disease) K21.9 Dementia F03.90 Diabetes mellitus E11.9
--- NOTE | 2019-08-30 10:39 | PC.NURSE ---
40ml of sterile water used to inflate balloon. prior to placement pt and pt son asked if pt has any anal abnormalities(strictures, sx, tumors, etc) prior to inserting both pt and son stated no.
--- NOTE | 2019-08-30 12:04 | PC.NURSE ---
attempted report no answer.
--- NOTE | 2019-08-30 12:21 | PC.NURSE ---
nano to [facility] spoke with huma huynh attempted report. was unable to give report.
--- NOTE | 2019-08-30 13:46 | PC.NURSE ---
pc to [facility] 6m 31s unable to give report.
--- NOTE | 2019-08-30 14:07 | PC.NURSE ---
report called to sachin sifuentes in med surg.
[2019-08-30] MEDS: ipratropium-albuterol 3 mL Neb INHALATION (15:06)
[2019-08-30 16:25] LABS: Glucose Point of Care 204 mg/dL (70-110)
[2019-08-30] MEDS: lactated ringers 1,000 ML 50 ML IV (18:08)
[2019-08-30] MEDS: losartan 50 mg Tablet PO (18:10)
[2019-08-30] MEDS: dilTIAZem 30 mg Tablet 15 MG PO (18:10)
[2019-08-30] MEDS: sennosides-docusate Tablet 1 TAB PO (18:11)
[2019-08-30] MEDS: memantine 5 mg tablet 10 MG PO (18:11)
[2019-08-30 21:17] LABS: Glucose Point of Care 183 mg/dL (70-110)
[2019-08-31] VITALS (8 sets, daily range): BP systolic 129–170; BP diastolic 70–90; PULSE 83–106; RESP 16–22; TEMP 36.6–37.2; O2SAT 93–98; BMI 32.3
--- NOTE | 2019-08-31 02:26 | XRR_ITS ---
PROCEDURE INFORMATION: Exam: XR Chest, 1 View Exam date and time: 08/31/2019 3:27 AM Age: 84 years old Clinical indication: NG tube placement TECHNIQUE: Imaging protocol: XR of the chest Views: 1 view. COMPARISON: CR XR chest 1V [id number] 08/30/2019 4:16 AM FINDINGS: Tubes, catheters and devices: There is an enteric tube present with the tip and side hole in the stomach. Lungs: Poor inspiration. Decreased lung volumes. Pleural space: No gross pleural effusion. No pneumothorax. Heart/Mediastinum: The cardiac silhouette is not enlarged. Vasculature: The thoracic aorta is tortuous. Bones/joints: Bilateral chronic rotator cuff tears with degenerative changes. Gastrointestinal tract: There is gaseous distention of the visualized portion of the colon, not significantly changed. XR/XR chest 1V portable [id number] IMPRESSION: Enteric tube in the stomach.
[2019-08-31] MEDS: dilTIAZem 30 mg Tablet 15 MG PO ×3 (02:28→17:08)
--- NOTE | 2019-08-31 06:00 | XRR_ITS ---
PROCEDURE INFORMATION: Exam: XR Abdomen, 1 View Exam date and time: 08/31/2019 3:11 AM Age: 84 years old Clinical indication: Condition or disease; Other: Ileus TECHNIQUE: Imaging protocol: XR of the abdomen. Views: Frontal supine view of the abdomen. 1 View. COMPARISON: CR XR KUB [id number] 08/30/2019 8:55 AM FINDINGS: Tubes, catheters and devices: An enteric tube extends to the stomach. Gastrointestinal tract: There is gaseous distention of the sigmoid colon, not significantly changed. Large amount of stool in the colon from the cecum to the splenic flexure. No gas-filled distended loops of small bowel. Organs: Excreted contrast in a small volume urinary bladder. Bones/joints: Prior right total hip arthroplasty. Mild left hip joint degeneration. Curvature of the lower lumbar spine convex to the left associated with multilevel disc degeneration. XR/XR KUB portable [id number] IMPRESSION: 1. No significant change in gaseous distention of the sigmoid colon. 2. Enteric tube present in the stomach.
[2019-08-31 06:01] LABS: Basophils # 0.1 10^3/uL (0.0-0.1); Basophils % 0.5 %; Eosinophils # 0.1 10^3/uL (0.0-0.8); Eosinophils % 0.5 %; Hematocrit 33.1 % (37.0-47.0); Hemoglobin 10.6 g/dL (11.5-15.3); Lymphocytes % 15.7 %; Mean Corpuscular Hemoglobin 28.3 pg (28.0-34.0); Mean Corpuscular Volume 88.3 fL (81-99); Monocytes # 1.2 10^3/uL (0.2-0.9); Monocytes % 9.4 %; Neutrophils # 9.6 10^3/uL (1.8-7.7); Neutrophils % 73.6 %; Nucleated Red Blood Cells % 0 %; Platelet Count 246 10^3/cmm (130-400); Red Blood Count 3.75 10^6/uL (4.1-5.3); Red Cell Distribution Width 14.5 % (12.1-15.1)
[2019-08-31 06:18] LABS: Alanine Aminotransferase 10 U/L (0-33); Albumin Level 3.4 g/dL (3.5-5.2); Alkaline Phosphatase 68 IU/L (35-105); Anion Gap 12.5 (5-19); Aspartate Amino Transferase 25 U/L (0-32); Blood Urea Nitrogen 15 mg/dL (8-23); Calcium 8.4 mg/dL (8.5-10.5); Carbon Dioxide 28 mmol/L (22-29); Chloride 101 mmol/L (98-107); Creatinine Clr Calc Pharmacy 59.3903; Globulin 2.4 g/dL (1.3-4.6); Glucose 195 mg/dL (65-115); Osmolality Calculated 290 mOsm/kg (285-295); Sodium 139 mmol/L (136-145); Total Bilirubin 0.6 mg/dL (0.15-1.2); Total Protein 5.8 g/dL (6.6-8.7)
[2019-08-31 06:26] LABS: Potassium 2.5 mmol/L (3.5-5.1)
[2019-08-31 06:59] LABS: Glucose Point of Care 194 mg/dL (70-110)
[2019-08-31 07:40] LABS: Magnesium 1.7 mg/dL (1.7-2.3)
[2019-08-31] MEDS: potassium chloride premix 40 MEQ/100 ML PREMIX 25 MEQ IV (07:46)
[2019-08-31] MEDS: memantine 5 mg tablet 10 MG PO ×2 (07:47→17:08)
[2019-08-31] MEDS: sennosides-docusate Tablet 1 TAB PO (07:48)
[2019-08-31] MEDS: loratadine 10 mg Tablet 5 MG PO (07:48)
[2019-08-31] MEDS: potassium chloride ER 10 mEq Tablet 40 MEQ PO (07:48)
[2019-08-31] MEDS: losartan 50 mg Tablet PO (07:49)
[2019-08-31] MEDS: aspirin 81 mg EC Tablet PO (07:49)
--- NOTE | 2019-08-31 08:13 | PC.OT ---
OT note: From chart review noted pt's potassium is 2.5. Will hold OT eval at this time.
--- NOTE | 2019-08-31 09:26 | P.PN_ITS ---
Subjective Subjective: Interval history: Patient awake in bed at time of exam. NG tube in place. Patient denies any nausea or vomiting, denies any abdominal pain or discomfort. Has had some output from rectal tube. Sitter at bedside due to patient's underlying dementia and pulling out IV and NG tube overnight. Vitals/I&O/Wt Last Vital Signs Temp 98.6 F 08/31/19 07:42 Pulse 90 08/31/19 07:42 Resp 20 H 08/31/19 07:42 BP 158/77 08/31/19 07:49 Pulse Ox 97 08/31/19 07:42 08/30/19 08/31/19 08/31/19 22:59 06:59 14:59 Intake Total 100 / 1200 Balance 100 / 1200 Weight last 48 hrs Weight 90.718 kg Weight 90.718 kg Physical Exam Const: COMMON NORMALS: alert GENERAL APPEARANCE: cooperative ORIENTATION/CONSCIOUSNESS: Yes awake, Yes oriented to person and Yes confused OTHER: Pleasantly confused HENMT: COMMON NORMALS: normocephalic and atraumatic HEAD & SCALP: normocephalic and atraumatic Eye: COMMON NORMALS: Equal, round and reactive pupils present PUPIL: Yes Equal, round and reactive pupils present Neck/C-Spine: COMMON NORMALS: supple GENERAL: Yes normal visual inspection Resp: COMMON NORMALS: normal respiratory effort and clear to auscultation bilaterally EFFORT & INSPECTION: Yes able to speak in complete sentences A USCULTATION: clear to auscultation bilaterally, no rhonchi and no wheezes OTHER: Upper airway noise Cardio: OTHER: Irregularly irregular GI: COMMON NORMALS: Soft to palpation INSPECTION: Yes abdominal distension PALPATION: Yes Soft to palpation OTHER: Soft, mild abdominal distention with no tenderness to palpation throughout the anterior abdomen, normal bowel sounds, rectal tube in place with brown liquid, no melena Extremity: COMMON NORMALS: no clubbing, cyanosis or edema and no calf tenderness Neuro: COMMON NORMALS: CN's II-XII intact bilaterally, moves all extremities and no focal motor deficits SENSORIUM/ORIENTATION: Yes alert and Yes oriented to person SPEECH: speech normal OTHER: Pleasantly confused Psych: COMMON NORMALS: cooperative OTHER: Underlying dementia, at baseline Skin: OTHER: Chronic erythema in the lower extremities bilaterally without any acute infectious process Data : 08/31/19 05:11 08/31/19 05:11 A&P Assessment and plan (1) Ileus: Patient with colonic ileus Improved today Clamp NG tube Start clear liquid diet Removal of rectal tube Possible discharge back to SNF later today if continued improvement Status: Acute (2) Atrial fibrillation: Patient with known atrial fibrillation, continue Cardizem every 8 hours as previously scheduled Patient is not on any type of anticoagulation Continue on aspirin 81 mg daily No concern for GI bleed at this time Status: Acute (3) Hypertension: Continued on losartan and Cardizem, both home medications PRN hydralazine as needed for elevated blood pressure Status: Acute (4) GERD (gastroesophageal reflux disease): Continue PPI daily Status: Acute (5) Dementia: Mental status appears to be at baseline Status: Acute (6) Diabetes mellitus: monitor blood sugar closely with low-dose sliding scale insulin as needed Status: Acute Additional A&P Information Concern for coffee-ground emesis at [facility]: No evidence of any active bleeding, continue on PPI. Patient does not have any coffee-ground emesis and no melanotic stools. Hypokalemia: Secondary to GI losses, magnesium ordered and pending, continue you with potassium replacement today DVT prophylaxis: SCDs, no pharmacologic prophylaxis due to concern for coffee-ground emesis prior to arrival Diet: N.p.o. CODE STATUS: DNR/DNI Attestations Medical Necessity Statement*: Hospitalization due to ileus Coding Level of Care Code Acute Security Program Manager for [employer] Diagnoses Ileus K56.7 Atrial fibrillation I48.91 Hypertension I10 GERD (gastroesophageal reflux disease) K21.9 Dementia F03.90 Diabetes mellitus E11.9
--- NOTE | 2019-08-31 09:49 | PC.CHAP ---
Pastoral Care Encounter/Spiritual Assessment Type of Contact [] Declined field services manager visit [] Patient/Family/Request visit [] Outpatient visit [] Follow-up visit [] Physician referral [] Code/Alert [x] Routine visit [] Staff referral [] Actively dying [] Patient sleeping [] Family support [] [] Out of room [] Palliative care [] [x] Receiving care in room [] Pre-surgical visit [] Trauma [] Long length of stay [] ICU visit [] Other: Relational/Emotional Strength [] Patient feels connected with others/family/visitors/staff [] Distress [] Loneliness/isolation [] Abandonment Spirituality of Patient [] Person of Natalia [] Attends Jewish of their Natalia [] Believes in Prayer [] Reads Bible or Oriental Orthodox materials [] There are Spiritual issues to be addressed [employer] Interventions [] Prayer [] Active listening [] Non-anxious presence [] Spiritual/emotional support [] Crisis/trauma care [] Spiritual counseling [] Bereavement support [] Provided bereavement packet [] Provided Bible/devotional materials [] Provided toy/stuffed animal, coloring book to patient or family member [] Provided Communion [] Anointing/[place] [] Salvation [x] Completed spiritual assessment [] Other: Impact on Illness or Injury [] Angry [] Fearful [] Anxious [] Often cries [] Exhaustion [] Unable to work [] Unable to attend pentecostal [] Unable to walk/stand [] Unable to read [] Unable to drive [] Unable to eat/drink [] Unable to sleep [] Unable to be with family [] Patient intubated [] Other: Summary Time spent with patient
[2019-08-31 09:59] LABS: Magnesium 1.7 mg/dL (1.7-2.3)
[2019-08-31] MEDS: magnesium citrate Btl 296 mL 150 ML PO (10:41)
[2019-08-31 10:57] LABS: Glucose Point of Care 157 mg/dL (70-110)
[2019-08-31] MEDS: lactated ringers 1,000 ML 50 ML IV (11:43)
--- NOTE | 2019-08-31 11:48 | PC.NURSE ---
1115 milk and molasses enema rectal tube deflated and removed then milk and molasses enema 32oz administered. Patient unable to hold liquid and liquid continuously exited the rectal area. Report given to Nieves GATICA.
[2019-08-31 14:05] LABS: Potassium 3.7 mmol/L (3.5-5.1)
[2019-08-31 16:26] LABS: Glucose Point of Care 206 mg/dL (70-110)
[2019-08-31 21:43] LABS: Glucose Point of Care 200 mg/dL (70-110)
[2019-08-31] MEDS: polyethylene glycol 3350 Pkt 17 gm PO (22:21)
[2019-09-01] VITALS (8 sets, daily range): BP systolic 120–160; BP diastolic 75–84; PULSE 80–101; RESP 16–20; TEMP 36.9–37.7; O2SAT 93–99
[2019-09-01] MEDS: dilTIAZem 30 mg Tablet 15 MG PO ×2 (01:12→08:28)
[2019-09-01 05:23] LABS: Basophils # 0.1 10^3/uL (0.0-0.1); Basophils % 0.6 %; Eosinophils # 0.1 10^3/uL (0.0-0.8); Eosinophils % 0.8 %; Hematocrit 35.2 % (37.0-47.0); Hemoglobin 10.9 g/dL (11.5-15.3); Lymphocytes # 1.9 10^3/uL (0.8-4.8); Lymphocytes % 15.5 %; Mean Corpuscular Hemoglobin 28.3 pg (28.0-34.0); Mean Corpuscular Volume 91.4 fL (81-99); Mean Platelet Volume 11.3 fL (7.4-10.4); Monocytes # 1.5 10^3/uL (0.2-0.9); Monocytes % 11.8 %; Neutrophils # 8.73 10^3/uL (1.8-7.7); Nucleated Red Blood Cells % 0 %; Platelet Count 227 10^3/cmm (130-400); Red Blood Count 3.85 10^6/uL (4.1-5.3); Red Cell Distribution Width 14.9 % (12.1-15.1); White Blood Count 12.3 10^3/uL (4.0-10.0)
[2019-09-01 05:28] LABS: Anion Gap 12.2 (5-19); Blood Urea Nitrogen 22 mg/dL (8-23); Calcium 8.5 mg/dL (8.5-10.5); Carbon Dioxide 31 mmol/L (22-29); Chloride 103 mmol/L (98-107); Creatinine Clr Calc Pharmacy 59.3903; Glucose 150 mg/dL (65-115); Osmolality Calculated 296 mOsm/kg (285-295); Potassium 3.2 mmol/L (3.5-5.1); Sodium 143 mmol/L (136-145)
[2019-09-01 06:59] LABS: Glucose Point of Care 162 mg/dL (70-110)
[2019-09-01] MEDS: sennosides-docusate Tablet 1 TAB PO (08:27)
[2019-09-01] MEDS: potassium chloride ER 10 mEq Tablet 20 MEQ PO (08:27)
[2019-09-01] MEDS: aspirin 81 mg EC Tablet PO (08:27)
[2019-09-01] MEDS: losartan 50 mg Tablet PO (08:27)
[2019-09-01] MEDS: memantine 5 mg tablet 10 MG PO (08:28)
--- NOTE | 2019-09-01 09:18 | XRR_ITS ---
PROCEDURE INFORMATION: Exam: XR Abdomen, 1 View Exam date and time: 09/01/2019 9:32 AM Age: 84 years old Clinical indication: Condition or disease; Intestinal condition; Other: Gi bleed follow up; Additional info: N/v/constipation/ileus TECHNIQUE: Imaging protocol: XR of the abdomen. Views: Frontal supine view of the abdomen. 1 View. COMPARISON: CR XR KUB portable [id number] 08/31/2019 2:59 AM FINDINGS: Gastrointestinal tract: Air-filled large bowel in the mid abdomen. Dilated sigmoid colon. Findings previously described on CT dated 08-30-19. . Follow-up if indicated. Bones/joints: Unremarkable. XR/XR KUB portable [id number] IMPRESSION: Air-filled large bowel in the mid abdomen. Dilated sigmoid colon. Findings previously described on CT dated 08-30-19. Follow-up if indicated.
[2019-09-01 11:44] LABS: Glucose Point of Care 180 mg/dL (70-110)
--- NOTE | 2019-09-01 12:13 | P.DS_ITS ---
Discharge Providers Date of Admission: 08/30/19 10:16 Date of Discharge: September 01, 2019 Attending Provider at Admission: Melissa Solares DO Attending Provider at Discharge: Melissa Solares DO Diagnoses at Discharge Discharge Diagnosis (1) Ileus: Status: Acute (2) Atrial fibrillation: Status: Acute (3) Hypertension: Status: Acute (4) GERD (gastroesophageal reflux disease): Status: Acute (5) Dementia: Status: Acute (6) Diabetes mellitus: Status: Acute Problem details: Currently diet controlled Reason for Visit Reason for Visit: UPPER GI BLEED Hospital Course Hospital Course: Patient was seen and evaluated in the emergency department noted to have concern for ileus therefore admitted for further evaluation and treatment. Patient was noted to have large amount of gas distention throughout her colon therefore rectal tube was placed. Patient also had NG tube placed for decompression. Her abdomen continued to improve, distention resolved. Patient was given enema and stool softener and laxative to help with bowel movement. Patient finally had large bowel movement abdomen returned to normal and patient did not have any further abdominal pain, no nausea or vomiting and symptoms resolved. On date of discharge patient was at baseline mentation with her dementia and abdomen was soft and nontender. Physical Exam Const: COMMON NORMALS: alert GENERAL APPEARANCE: cooperative ORIENTATION/CONSCIOUSNESS: Yes awake, Yes oriented to person and Yes confused OTHER: Pleasantly confused HENMT: COMMON NORMALS: normocephalic and atraumatic HEAD & SCALP: normocephalic and atraumatic Eye: COMMON NORMALS: Equal, round and reactive pupils present PUPIL: Yes Equal, round and reactive pupils present Neck/C-Spine: COMMON NORMALS: supple GENERAL: Yes normal visual inspection Resp: COMMON NORMALS: normal respiratory effort and clear to auscultation bilaterally EFFORT & INSPECTION: Yes able to speak in complete sentences AUSCULTATION: clear to auscultation bilaterally, no rhonchi and no wheezes OTHER: Upper airway noise Cardio: OTHER: Irregularly irregular GI: COMMON NORMALS: Soft to palpation INSPECTION: Yes abdominal distension PALPATION: Yes Soft to palpation OTHER: Soft, nontender, nondistended, normal bowel sounds : COMMON NORMALS: Yes no CVA tenderness BLADDER/KIDNEY EXAM: Yes no CVA tenderness Back/Pelvis: COMMON NORMALS: no CVA tenderness Extremity: COMMON NORMALS: no clubbing, cyanosis or edema and no calf tenderness Neuro: COMMON NORMALS: CN's II-XII intact bilaterally, moves all extremities and no focal motor deficits SENSORIUM/ORIENTATION: Yes alert and Yes oriented to person SPEECH: speech normal OTHER: Pleasantly confused Psych: COMMON NORMALS: cooperative OTHER: Underlying dementia, at baseline Skin: OTHER: Chronic erythema in the lower extremities bilaterally without any acute infectious process Discharge Data Data Completed and Pending: Completed Studies During Hospitalization Category Date Time Status CT abdomen pelvis w con* [id number] Urge nt Cat Scan 08/30/19 01:46 Completed XR KUB [id number] Stat Exams 08/30/19 08:28 Completed XR KUB portable 7 [id number] Routine Exams 08/31/19 06:00 Taken XR chest 1V 76000 Stat Exams 08/30/19 03:57 Completed XR chest 1V kim ble [id number] Urgent Exams 08/30/19 01:46 Completed XR chest 1V kim ble [id number] Urgent Exams 08/31/19 02:26 Completed Pending at discharge Category Date Time Status XR KUB portable 7 [id number] Routine Exams 09/01/19 09:18 Taken Retype for Patiet s ABO/Rh Routine Lab 08/30/19 01:43 Results Type and Screen S tat Lab 08/30/19 01:45 Results Labs from last 24 hours 09/01/19 09/01/19 09/01/19 11:32 06:50 04:16 WBC RBC Hgb Hct MCV MCH MCHC RDW Plt Count MPV Neut % (Auto) Lymph % (Auto) Bracken % (Auto) Eos % (Auto) Baso % (Auto) Neut # (Auto) Lymph # (Auto) [place]ack[place] # (Auto) Eos # (Auto) Baso # (Auto) Nucleated RBC % (a uto) Nucleated RBCs # Sodium 143 Potassium 3.2 L Chloride 103 Carbon Dioxide 31 H Anion Gap 12.2 BUN 22 Creatinine 0.7 Glucose 150 H POC Glucose 180 162 Calculated Osmolal ity 296 H Calcium 8.5 09/01/19 08/31/19 08/31/19 04:16 21:30 16:22 WBC 12.3 H RBC 3.85 L Hgb 10.9 L Hct 35.2 L MCV 91.4 MCH 28.3 MCHC 31.0 RDW 14.9 Plt Count 227 MPV 11.3 H Neut % (Auto) 71.0 Lymph % (Auto) 15.5 Bracken % (Auto) 11.8 Eos % (Auto) 0.8 Baso % (Auto) 0.6 Neut # (Auto) 8.73 H Lymph # (Auto) 1.9 Bracken # (Auto) 1.5 H Eos # (Auto) 0.1 Baso # (Auto) 0.1 Nucleated RBC % (a uto) 0 Nucleated RBCs # 0.0 Sodium Potassium Chloride Carbon Dioxide Anion Gap BUN Creatinine Glucose POC Glucose 200 206 Calculated Osmolal ity Calcium 08/31/19 13:45 WBC RBC Hgb Hct MCV MCH MCHC RDW Plt Count MPV Neut % (Auto) Lymph % (Auto) Bracken % (Auto) Eos % (Auto) Baso % (Auto) Neut # (Auto) Lymph # (Auto) Bracken # (Auto) Eos # (Auto) Baso # (Auto) Nucleated RBC % (a uto) Nucleated RBCs # Sodium Potassium 3.7 Chloride Carbon Dioxide Anion Gap BUN Creatinine Glucose POC Glucose Calculated Osmolal ity Calcium Vitals: Last Vital Signs Temp 98.5 F 09/01/19 11:33 Pulse 80 09/01/19 11:33 Resp 16 09/01/19 11:33 BP 137/83 09/01/19 11:33 Pulse Ox 99 09/01/19 11:33 Discharge Plan Discharge Patient Disposition: [facility] Condition: Stable Prescriptions: New potassium chloride 10 mEq Tablet Extended Release 20 meq PO DAILY 30 Days Qty: 60 RF: 0 Continued losartan 50 mg Tablet 50 mg PO DAILY RF: 0 Tylenol 325 mg Tablet 325 mg PO Q4H PRN (Reason: Pain) RF: 0 loratadine 5 mg/5 mL Solution See Rx Instructions .ROUTE .COMPLEX RF: 0 sennosides-docusate sodium 8.6-50 mg Tablet 1 tab-cap PO DAILY RF: 0 aspirin [Aspir-81] 81 mg Tablet,Delayed Release (Dr/Ec) 81 mg PO DAILY RF: 0 acetaminophen 500 mg Tablet 500 mg PO TID RF: 0 Refresh Tears 0.5 % Drops See Rx Instructions .ROUTE .COMPLEX RF: 0 bisacodyl 5 mg Tablet,Delayed Release (Dr/Ec) 10 mg PO DAILY PRN (Reason: Constipation) RF: 0 diltiazem HCl 30 mg Tablet 15 mg PO TID RF: 0 memantine [Namenda] 10 mg Tablet 10 mg PO BID RF: 0 Milk Of Magnesia Concentrated 2,400 mg/10 mL Suspension 30 ml PO DAILY PRN (Reason: Constipation) RF: 0 TwoCal HN 0.08-2 gram-kcal/mL Liquid 1 ea PO TID RF: 0 Mylantex Double-Strength 400-4 30 ml PO PRN RF: 0 Discharge Orders: Discharge Order (Routine); Ordered 09/01/19 Ordered By: Melissa Solares Referrals: Isabel Esparza MD [Staff Physician] - 4-7 days Discharge Diet: Advance as tolerated and Usual diet Discharge Activity: Resume usual activity and Oxygen as instructed Activity Restrictions/Additional Instructions: [facility] Increase diet as tolerated to usual baseline diet. Patient was noted to have ileus with gaseous distention of the colon, this is now improved and resolved patient has had large bowel movement and abdomen is soft, nontender, nondistended. Plan to discharge back to [facility] facility with no acute changes in medications other than addition of potassium 20 mEq daily. Recommend recheck potassium in 3 to 4 days. Discharge Attestations Time Spent in Discharge Care*: greater than 30 min Quality Metrics Clinical Quality Measures During this hospital stay, did patient experience: None Coding Level of Care Code Acute Anodic Operator for Chg Fwd Diagnoses Ileus K56.7 Atrial fibrillation I48.91 Hypertension I10 GERD (gastroesophageal reflux disease) K21.9 Dementia F03.90 Diabetes mellitus E11.9
== END 2019-09-01 16:51 | disposition skilled nursing facility (03) ==
LOC: ER 07:25 → MEDSURG 13:57
PROVIDERS: Emergency Medicine; Family Medicine; Hospitalist; Nurse Practitioner Family; Admitting Provider Family Medicine; Visit Provider Family Medicine
DX: K56.7 Ileus, unspecified (principal); I48.91 Unspecified atrial fibrillation; I10 Essential (primary) hypertension; K21.9 Gastro-esophageal reflux disease without esophagitis; F03.90 Unspecified dementia, unspecified severity, without behavioral disturbance, psychotic disturbance, mood disturbance, and anxiety; E11.9 Type 2 diabetes mellitus without complications; Z66 Do not resuscitate; Z79.82 Long term (current) use of aspirin; R11.2 Nausea with vomiting, unspecified
CPT/HCPCS: 12345; 36415; 36416; 71045; 74018; 74177; 80048; 80053; 81001; 81003; 82962; 83605; 83735; 84132; 85025; 85610; 86850; 86900; 87086; 93005; 94640; 96360; 96361; 96365; 96366; 96372; 97161; 97166; 97530; 99284; 99285; G0378; J1815; J3480; J7030; Q9967

== ENCOUNTER 2019-09-09 22:27 | Inpatient (IN) | payer MEDICARE, MEDICAID, SELFPAY ==
[2019-09-09 22:30] VITALS: BP 143/60; PULSE 118; RESP 24; TEMP 36.9; O2SAT 94
--- NOTE | 2019-09-09 22:30 | ECG_ITS ---
[facility] Test Date: 2019-09-09 Pat Name: Theresa Brownlee Department: Room: Gender: Female Shank Scourer: : 1935 Requested By: Zak Albert Order Number: [id number] Angelina MD: Candi Xiao M.D. Measurements Intervals [place] Rate: 113 P: 69 FL: 164 QRS: 50 QRSD: 98 T: 144 QT: 360 QTc: 495 Interpretive Statements Possible multifocal atrial tachycardia NONSPECIFIC ST & T-WAVE ABNORMALITY Compared to ECG 08/30/2019 02:19:28 T-wave abnormality still present Electronically Signed On 09-09-2019 23:42:46 CDT by Candi Xiao M.D. [id number]
--- NOTE | 2019-09-09 22:31 | XRR_ITS ---
PROCEDURE INFORMATION: Exam: XR Chest, 1 View Exam date and time: 09/09/2019 10:31 PM Age: 84 years old Clinical indication: Dyspnea; Additional info: SOB TECHNIQUE: Imaging protocol: XR of the chest Views: 1 view. COMPARISON: CR XR chest 1V portable [id number] 08/31/2019 2:52 AM FINDINGS: Lungs: Mild patchy airspace opacities (atelectasis and/or consolidation) at bilateral lung bases, more pronounced on the right. These have overall increased since the prior study. Mild pulmonary edema, increased from prior study. Pleural space: No visible pneumothorax. Moderate right pleural effusion, increased from prior study. Small left pleural effusion, new. Heart/Mediastinum: Cardiomediastinal silhouette contour is within normal limits. Bones/joints: No emergent findings identified. XR/XR chest 1V portable [id number] IMPRESSION: 1. Mild patchy airspace opacities (atelectasis and/or consolidation) at bilateral lung bases, more pronounced on the right. These have overall increased since the prior study. 2. Mild pulmonary edema, increased from prior study. 3. Moderate right pleural effusion, increased from prior study. Small left pleural effusion, new.
--- NOTE | 2019-09-09 22:31 | W.ED.SOB ---
HPI - SOB/Dyspnea General: Chief Complaint: Shortness of Breath/Dyspnea Stated Complaint: sob Time Seen by Provider: 09/09/19 22:29 Source: patient Mode of arrival: ambulatory Limitations: no limitations History of Present Illness: HPI Narrative: Patient is a resident at [facility] in [facility]. Patient about 8:00 this evening started feeling short of breath and EMS was dispatched. It was reported patient had oxygen saturations in the upper 80s low 90s and was placed on oxygen. Patient was transported to the ER in route she was given a breathing treatment which improved her overall respiratory status. Patient appears chronically ill. Patient appears in no acute distress at this time. Patient does report feeling somewhat better. Patient is a DO NOT RESUSCITATE. Patient has a history of atrial fib and dementia. Patient does not routinely use oxygen at [facility]. Review of Systems General: Reports: 10 or more systems reviewed and unremarkable except in HPI and below Resp: Reports: dyspnea PFS ED PFSH: Medical History (Updated 09/10/19 @ 02:07 by PRIMO Ornelas) Atrial fibrillation Dementia Diabetes mellitus Currently diet controlled GERD (gastroesophageal reflux disease) Hypertension Iron deficiency Surgical History History of appendectomy Family History (Updated 08/30/19 @ 10:43 by Melissa Solares DO) Mother Diabetes Father Cancer Social History (Updated 08/30/19 @ 10:44 by Melissa Solares DO) Smoking and tobacco status: never smoked Alcohol intake: never Lives independently: No Housing: [facility] Physical Exam Const: COMMON NORMALS: no acute distress and patient oriented x3 GENERAL APPEARANCE: cooperative HENMT: COMMON NORMALS: normocephalic and Normal external nose present HEAD & SCALP: normal to inspection and normocephalic NOSE: Normal external nose present MOUTH: Normal oral and palatal mucosa present Eye: GENERAL EYE: appearance normal, both eyes and all related structures Neck/C-Spine: COMMON NORMALS: no JVD Chest: COMMONS NORMALS: normal inspection of the chest Resp: EFFORT & INSPECTION: Yes able to speak in complete sentences AUSCULTATION: diminished lung sounds Cardio: COMMON NORMALS: no JVD, regular rate and regular rhythm RATE: regular rate RHYTHM: regular rhythm GI: COMMON NORMALS: non-tender Back/Pelvis: COMMON NORMALS: thoracic and lumbar spine normal to inspection Extremity: GENERAL: Yes edema (bilateral lower ext.) Neuro: COMMON NORMALS: patient oriented x3 and moves all extremities Psych: COMMON NORMALS: mental status grossly normal and cooperative Skin: COMMON NORMALS: no rashes or lesions noted GENERAL SKIN EXAM: no rashes or lesions noted Course ED course: 1215, reviewed patient with Dr. Beasley who recommended going ahead and treating with dual antibiotic therapy vancomycin and Zosyn for probable infection of pneumonia or urinary tract. Also has strong suspicion for a end STEMI with CHF. Vital Signs: Vital signs: Vital Signs Temperature 98.5 F 09/09/19 22:30 Pulse Rate 93 09/09/19 23:58 Respiratory Rate 18 09/09/19 23:50 Blood Pressure 125/49 09/09/19 23:42 Pulse Oximetry 96 09/09/19 23:50 MDM - SOB/Dyspnea MDM Narrative: Medical decision making narrative: Patient comes in today for complaints of dyspnea. Patient was responsive and answers questions in short phrases. Patient is hard of hearing. Lungs are decreased throughout. Patient was tachycardic in the 120s. Patient was hypoxic in the mid 80s on room air. Patient had been treated with oxygen at 4 L per nasal cannula and a breathing treatment prior to arrival to the ER and had a increase in O2 saturations to 93%. Abdomen was soft nontender. Patient had some edema in the lower extremities. No obvious JVD was noted. Blood pressure was 140 systolic. Differential diagnosis included but not limited to pneumonia, CHF, ACS, sepsis, UTI. CBC noted a white count of 18,000. BNP was 9600, troponin was elevated at 69, chest x-ray noted pulmonary edema with possible right mid to lower lobe infiltrate. Patient also had some effusions bilaterally. Patient was medicated in the ER with a total of 40 mg of Lasix and a DuoNeb treatment. Patient did have improvement in heart rate into the 80s and pulse oxygen going up to 98% continued on 4 L nasal cannula. Patient was given 1 g vancomycin and 3.375 g of Zosyn. Urine was collected and cultured. Blood cultures were done. Talked with Dr. Garcia who agreed to admit patient to [facility] floor. Patient needs admission for treatment of infection, CHF, monitoring for deterioration of condition, repeat labs. Lab Data: Labs: Lab Results 09/09/19 09/09/19 09/09/19 Range/Units 22:05 23:06 23:06 WBC 18.4 H (4.0-10.0) 10^3/ uL RBC 4.84 (4.1-5.3) 10^6/u L Hgb 13.6 (11.5-15.3) g/dL Hct 43.7 (37.0-47.0) % MCV 90.3 (81-99) fL MCH 28.1 (28.0-34.0) pg MCHC 31.1 (30.0-36.0) g/dL RDW 14.6 (12.1-15.1) % Plt Count 345 (130-400) 10^3/c mm MPV 10.9 H (7.4-10.4) fL Neut % (Auto) 81.5 % Lymph % (Auto) 8.3 % Cooke % (Auto) 8.8 % Eos % (Auto) 0.2 % Baso % (Auto) 0.4 % Neut # (Auto) 14.97 H (1.8-7.7) 10^3/u L Lymph # (Auto) 1.5 (0.8-4.8) 10^3/u L Cooke # (Auto) 1.6 H (0.2-0.9) 10^3/u L Eos # (Auto) 0.0 (0.0-0.8) 10^3/u L Baso # (Auto) 0.1 (0.0-0.1) 10^3/u L Nucleated RBC % (a uto) 0 % Nucleated RBCs # 0.0 /100WBC Specimen Type Sample Site ABG pH (7.35-7.45) ABG pCO2 (35-45) mmHg ABG pO2 (80.0-100.0) mmH g ABG HCO3 (22-26) mmol/L ABG Base Excess (-2.0-2.0) mmol/ L Keith Test Hematocrit (37-47) % O2 Delivery Device O2 Liters/Min % Ground Service Equipment Mechanic ID Sodium 137 (136-145) mmol/L Potassium 4.3 (3.5-5.1) mmol/L Chloride 98 (98-107) mmol/L Carbon Dioxide 24 (22-29) mmol/L Anion Gap 19.3 H (5-19) BUN 19 (8-23) mg/dL Creatinine 0.8 (0.5-0.9) mg/dL Glucose 336 H (65-115) mg/dL Calculated Osmolal ity 294 (285-295) mOsm/k g Calcium 9.1 (8.5-10.5) mg/dL Magnesium 1.8 (1.7-2.3) mg/dL Total Bilirubin 0.6 (0.15-1.2) mg/dL AST 25 (0-32) U/L ALT 17 (0-33) U/L Alkaline Phosphata se 86 (35-105) IU/L Troponin T Baselin e (0-10) ng/L NT-Pro-B Natriuret Pep 9451 H (0-450) pg/mL Total Protein 6.8 (6.6-8.7) g/dL Albumin 3.7 (3.5-5.2) g/dL Globulin 3.1 (1.3-4.6) g/dL Urine Color Yellow (Yellow) Urine Appearance Hazy A (CLEAR) Urine pH 5 (5-7) Ur Specific Gravit y 1.030 (1.005-1.030) Urine Protein 1+ H (Negative) Urine Glucose (UA) 4+ H (Normal) Urine Ketones 1+ H (Negative) Urine Blood Neg (Negative) Urine Nitrate Positive H (Negative) Urine Bilirubin 1+ H (NEGATIVE) Urine Urobilinogen Norm (Negative) mg/dL Ur Leukocyte Debbi ase Negative (Negative) Urine RBC 5-10 H (0-2) /hpf Urine WBC 10-15 H (0-5) /hpf Ur Squamous Epith Cells 80-100 H (0-5) Amorphous Sediment Not Reportable Urine Bacteria 4+ H (NONE) 09/09/19 09/10/19 Range/Units 23:06 01:13 WBC (4.0-10.0) 10^3/ uL RBC (4.1-5.3) 10^6/u L Hgb (11.5-15.3) g/dL Hct (37.0-47.0) % MCV (81-99) fL MCH (28.0-34.0) pg MCHC (30.0-36.0) g/dL RDW (12.1-15.1) % Plt Count (130-400) 10^3/c mm MPV (7.4-10.4) fL Neut % (Auto) % Lymph % (Auto) % [place]oke % (Auto) % Eos % (Auto) % Baso % (Auto) % Neut # (Auto) (1.8-7.7) 10^3/u L Lymph # (Auto) (0.8-4.8) 10^3/u L Cooke # (Auto) (0.2-0.9) 10^3/u L Eos # (Auto) (0.0-0.8) 10^3/u L Baso # (Auto) (0.0-0.1) 10^3/u L Nucleated RBC % (a uto) % Nucleated RBCs # /100WBC Specimen Type Arterial Sample Site Brachial, left ABG pH 7.47 H (7.35-7.45) ABG pCO2 40.3 (35-45) mmHg ABG pO2 74.8 L (80.0-100.0) mmH g ABG HCO3 29.0 H (22-26) mmol/L ABG Base Excess 4.8 H (-2.0-2.0) mmol/ L Keith Test N/a Hematocrit 37.4 (37-47) % O2 Delivery Device Nc O2 Liters/Min 4.0 % Ground Service Equipment Mechanic ID [email or web address] Sodium (136-145) mmol/L Potassium (3.5-5.1) mmol/L Chloride (98-107) mmol/L Carbon Dioxide (22-29) mmol/L Anion Gap (5-19) BUN (8-23) mg/dL Creatinine (0.5-0.9) mg/dL Glucose (65-115) mg/dL Calculated Osmolal ity (285-295) mOsm/k g Calcium (8.5-10.5) mg/dL Magnesium (1.7-2.3) mg/dL Total Bilirubin (0.15-1.2) mg/dL AST (0-32) U/L ALT (0-33) U/L Alkaline Phosphata se (35-105) IU/L Troponin T Baselin e 69 H (0-10) ng/L NT-Pro-B Natriuret Pep (0-450) pg/mL Total Protein (6.6-8.7) g/dL Albumin (3.5-5.2) g/dL Globulin (1.3-4.6) g/dL Urine Color (Yellow) Urine Appearance (CLEAR) Urine pH (5-7) Ur Specific Gravit y (1.005-1.030) Urine Protein (Negative) Urine Glucose (UA) (Normal) Urine Ketones (Negative) Urine Blood (Negative) Urine Nitrate (Negative) Urine Bilirubin (NEGATIVE) Urine Urobilinogen (Negative) mg/dL Ur Leukocyte Debbi ase (Negative) Urine RBC (0-2) /hpf Urine WBC (0-5) /hpf Ur Squamous Epith Cells (0-5) Amorphous Sediment Urine Bacteria (NONE) EKG Data^: EKG 1: Attestation: I personally reviewed and interpreted this EKG as follows: (2254, sinus tachycardia, artifact present, no ST elevation, regular rate at 113 bpm, no ectopy noted.) Discharge Plan Discharge Patient Disposition: Admitted As Inpatient Clinical Impression: Acute dyspnea Condition: Stable Coding Level of Care Code ED Park Landscape Architect for Yanickg Fwd Exam Comprehensive
[2019-09-09 23:16] LABS: Basophils # 0.1 10^3/uL (0.0-0.1); Basophils % 0.4 %; Eosinophils % 0.2 %; Hematocrit 43.7 % (37.0-47.0); Hemoglobin 13.6 g/dL (11.5-15.3); Lymphocytes # 1.5 10^3/uL (0.8-4.8); Lymphocytes % 8.3 %; Mean Corpuscular HGB Conc 31.1 g/dL (30.0-36.0); Mean Corpuscular Hemoglobin 28.1 pg (28.0-34.0); Mean Corpuscular Volume 90.3 fL (81-99); Mean Platelet Volume 10.9 fL (7.4-10.4); Monocytes # 1.6 10^3/uL (0.2-0.9); Monocytes % 8.8 %; Neutrophils # 14.97 10^3/uL (1.8-7.7); Neutrophils % 81.5 %; Nucleated Red Blood Cells % 0 %; Platelet Count 345 10^3/cmm (130-400); Red Blood Count 4.84 10^6/uL (4.1-5.3); Red Cell Distribution Width 14.6 % (12.1-15.1); White Blood Count 18.4 10^3/uL (4.0-10.0)
[2019-09-09] MEDS: FUROsemide 10 mg/mL SDV 2mL 20 MG IVP (23:20)
[2019-09-09 23:42] VITALS: BP 125/49; PULSE 94; RESP 22; O2SAT 98
[2019-09-09 23:48] LABS: Troponin(5th) Baseline 69 ng/L (0-10)
[2019-09-09 23:50] VITALS: PULSE 94; RESP 18; O2SAT 96
[2019-09-09] MEDS: ipratropium-albuterol 3 mL Neb INHALATION (23:50)
[2019-09-09 23:56] LABS: Alanine Aminotransferase 17 U/L (0-33); Albumin Level 3.7 g/dL (3.5-5.2); Alkaline Phosphatase 86 IU/L (35-105); Aspartate Amino Transferase 25 U/L (0-32); Blood Urea Nitrogen 19 mg/dL (8-23); Calcium 9.1 mg/dL (8.5-10.5); Carbon Dioxide 24 mmol/L (22-29); Chloride 98 mmol/L (98-107); Globulin 3.1 g/dL (1.3-4.6); Glucose 336 mg/dL (65-115); Magnesium 1.8 mg/dL (1.7-2.3); NT Pro B Type Natriuretic Pept 9451 pg/mL (0-450); Osmolality Calculated 294 mOsm/kg (285-295); Sodium 137 mmol/L (136-145); Total Bilirubin 0.6 mg/dL (0.15-1.2); Total Protein 6.8 g/dL (6.6-8.7)
[2019-09-09 23:58] VITALS: PULSE 93
[2019-09-10] VITALS (9 sets, daily range): BP systolic 124–148; BP diastolic 63–73; PULSE 82–94; RESP 17–20; TEMP 36.5–37.2; O2SAT 93–99
[2019-09-10 00:14] LABS: Anion Gap 19.3 (5-19)
[2019-09-10 00:15] LABS: Potassium 4.3 mmol/L (3.5-5.1)
--- NOTE | 2019-09-10 00:30 | ECG_ITS ---
[facility] Test Date: 2019-09-10 Pat Name: Theresa Brownlee Department: Room: Gender: Female Surfacing Technician: : 1935 Requested By: Zak Albert Order Number: [id number] Angelina MD: Alfred Chirinos M.D. Measurements Intervals [place] Rate: 94 P: 54 AR: 167 QRS: 4 QRSD: 96 T: 91 QT: 376 QTc: 472 Interpretive Statements SINUS RHYTHM POSSIBLE RIGHT VENTRICULAR CONDUCTION DELAY [RSR (QR) IN V1/V2] NONSPECIFIC ST & T-WAVE ABNORMALITY Compared to ECG 09/09/2019 22:54:03 No significant changes Electronically Signed On 09-10-2019 22:49:52 CDT by Alfred Chirinos M.D. [email or web address]
[2019-09-10] MEDS: FUROsemide 10 mg/mL SDV 2mL 20 MG IVP (00:56)
[2019-09-10 01:02] LABS: Blood Urine Neg (Negative); Glucose Urine UA 4+ (Normal); Ketones Urine 1+ (Negative); Protein Urine 1+ (Negative); Urine Appearance Hazy (CLEAR); Urine Color Yellow (Yellow); pH Urine 5 (5-7)
[2019-09-10] MEDS: piperacillin-tazobactam 3.375 GM in sodium chloride 0.9% (plus) 50 ML IV ×4 (01:02→22:28)
[2019-09-10 01:03] LABS: Add Urine Microscopic? YES; Bilirubin Urine 1+ (NEGATIVE); Leukocyte Esterase Urine Negative (Negative); Nitrate Urine Positive (Negative); Urobilinogen Urine Norm (Negative)
[2019-09-10 01:06] LABS: Bacteria Urine 4+; Squamous Epithelial Cell Urine 80-100 (0-5)
[2019-09-10 01:07] LABS: Add Urine Culture? No
[2019-09-10 01:24] LABS: ABG PCO2 40.3 mmHg (35-45); ABG PH Result 7.47 (7.35-7.45); Arterial Blood Gas Hematocrit 37.4 % (37-47); Base Excess ABG 4.8 mmol/L (-2.0-2.0); Blood Gas Sample Site Brachial, left; Blood Gas Sample Type Arterial; Oxygen Device NC; PO2 ABG 74.8 mmHg (80.0-100.0)
[2019-09-10] MEDS: vancomycin 1,000 MG in sodium chloride 0.9% 250 ML 250 MG IV (02:24)
--- NOTE | 2019-09-10 02:41 | P.HP_ITS ---
Providers/Chief Complaint Admitting Physician: Dave Lamar Chief Complaint: sob History of Present Illness Theresa Brownlee is a 84 year old [place] resident, with dementia, pleasantly confused was brought in for evaluation due to shortness of breath that will care prison around 8 PM last night. Saturations were noted in the 80s-90s. She reportedly is not on oxygen at baseline. In ER noted with BNP elevation, but also neutrophilic high leukocytosis, with bilateral patchy infiltrates on chest x-ray. She is afebrile, initially with tachycardia 118, possible MAT on EKG. I do not see history of formally diagnosed lung disease, although x-ray does appear hyperinflated. BNP is elevated at 9451. UA with pos itive nitrites, negative leukocyte esterase, 10-15 WBCs, but also with 80-100 squamous epithelial cells. She herself is not able to provide a very significant history. She is generally weak. Does wake up, communicates, however, takes her a while to express herself, and she is also not oriented to place or year. Thinks that she is at home. She denies any complaints. Says that her breathing currently is comfortable. Does state the remembering that she was coughing earlier this morning. Denies any headache, chest pain, abdominal pain, or pain in back or extremities or elsewhere. Says that overall she is doing all right. Cannot provide history whether she is normally wearing oxygen says I might have it connected somewhere . Appears to have better distant memory, and does recall that her mother has diabetes, which appears to correspond to charting during prior admission. She tells me she mostly gets around by wheelchair. Review of Systems General: Reports: Other ( Provides a limited review of systems, although to be taken with a grain of salt given her dementia, and currently also associated confusion secondary to acute medical condition.) Const: Denies: fever(s), chills, body aches or malaise Eyes: Denies: change in vision ENMT: Denies: throat pain Card: Denies: chest pain Resp: Reports: non-productive cough; Denies: productive cough GI: Denies: abdominal pain : Denies: urinary frequency Musc: Denies: back pain or joint swelling Skin/Breast: Denies: rash Neuro: Denies: headache(s) Endo: Denies: polyuria David/Lymph: Denies: easy bleeding Medications/Allergies Home Medications Medication Instructions Recorded Confirmed Last Taken Type Milk Of Magnesia Concentrated 30 ml PO DAILY PRN 08/30/19 08/30/19 Unknown History Mylantex Double-Strength 400-4 30 ml PO PRN 08/30/19 08/30/19 Unknown History Refresh Tears See Rx Instructions .ROUTE .COMPLEX 08/30/19 08/30/19 Unknown History TwoCal HN 1 ea PO TID 08/30/19 08/30/19 08/29/19 History Tylenol 325 mg PO Q4H PRN 08/30/19 08/30/19 Unknown History acetaminophen 500 mg PO TID 08/30/19 08/30/19 08/29/19 History aspirin [Aspir-81] 81 mg PO DAILY 08/30/19 08/30/19 08/29/19 History bisacodyl 10 mg PO DAILY PRN 08/30/19 08/30/19 Unknown History diltiazem HCl 15 mg PO TID 08/30/19 08/30/19 08/29/19 History loratadine See Rx Instructions .ROUTE .COMPLEX 08/30/19 08/30/19 08/29/19 History losartan 50 mg PO DAILY 08/30/19 08/30/19 08/29/19 History memantine [Namenda] 10 mg PO BID 08/30/19 08/30/19 08/29/19 History sennosides-docusate sodium 1 tab-cap PO DAILY 08/30/19 08/30/19 08/29/19 History potassium chloride 20 meq PO DAILY 30 Days #60 tab 09/01/19 Unknown Rx Allergies Allergy/AdvReac Type Severity Reaction Status Date / Time ciprofloxacin [From Cipro] Allergy Unknown Verified 08/30/19 08:43 PFSH Acute PFSH: Medical History Atrial fibrillation Dementia Diabetes mellitus Currently diet controlled GERD (gastroesophageal reflux disease) Hypertension Iron deficiency Surgical History History of appendectomy Family History Mother Diabetes Father Cancer Social History Smoking and tobacco status: never smoked Alcohol intake: never Lives independently: No Housing: Prison Vitals/I&O/Wt Last Vital Signs Temp 98.1 F 09/10/19 02:27 Pulse 82 09/10/19 02:27 Resp 18 09/10/19 02:27 BP 142/68 09/10/19 02:27 Pulse Ox 99 09/10/19 02:27 Physical Exam Const: COMMON NORMALS: no acute distress and patient oriented x3 HENMT: COMMON NORMALS: oropharynx normal Neck/C-Spine: COMMON NORMALS: no JVD Resp: COMMON NORMALS: normal respiratory effort and clear to auscultation bilaterally AUSCULTATION: clear to auscultation bilaterally Cardio: COMMON NORMALS: no JVD, regular rhythm, S1 normal heart sound present, S2 normal heart sound present and No murmurs present (Cardio) RHYTHM: regular rhythm HEART SOUNDS: S1 normal heart sound present and S2 normal heart sound present GI: COMMON NORMALS: Normal to inspection, nondistended, normoactive bowel sounds present, Soft to palpation and non-tender PALPATION: Yes Soft to palpation Extremity: COMMON NORMALS: no joint enlargement and no pedal edema Neuro: COMMON NORMALS: patient oriented x3 and moves all extremities Skin: COMMON NORMALS: no rashes or lesions noted GENERAL SKIN EXAM: no rashes or lesions noted Data : 09/09/19 23:06 09/09/19 23:06 Micro: Microbiology 09/10/19 01:10 Blood Culture - Preliminary Blood SPECIMEN COLLECTED A&P Assessment and plan (1) Hypoxia: Suspected CHF, which appears to be new, with BNP elevation, peripheral edema, hypoxia, congestive changes cervical x-ray, but also with patchy interstitial infiltrates, concern for pneumonia. She herself denies any complaints, and after receiving Lasix in ER, and initial treatments, oxygenation has been improving. She denies any shortness of breath. Denies any chest pain. Says he remembers coughing in the morning. We do not have prior echocardiogram on file. We will need to obtain one to closer assess ventricular function, as well as any valvular abnormalities which may contribute to her symptoms, and because BNP elevation. Will trend troponin EKG to exclude myocardial ischemia as cause of CHF. Continue Lasix. Monitor I&O, renal function. Given bilateral patchy scattered infiltrates, hypoxia, will assess for COVID-19. Check rapid flu. Antibiotic coverage with Zosyn and vancomycin at this time. Will check urine bacterial antigens, MRSA PCR. Status: Acute (2) CHF exacerbation: No known prior history. Rule out acute ischemia. Additional assessment management as above. Status: Acute (3) Multifocal atrial tachycardia: Heart rates improved with improving oxygenation. Monitor. Not formally d iagnosed with lung disease. May benefit from additional assessment by PFT after she recovers as possible underlying undiagnosed pulmonary disease may be triggering arrhythmia in addition to acute condition. Status: Acute (4) Leukocytosis: Secondary to suspected pneumonia. Urinalysis is dirty. Requested culture still be performed, if single organism isolated, may be useful. Status: Acute (5) Troponin level elevated: Mild elevation of troponin. She has no chest pain. Complete troponin EKG series. Additional assessment for CHF. If present, may benefit from additional assessment for coronary disease/risk stratification, if there is no non-STEMI. Status: Acute (6) Bacteriuria: Follow-up urine culture. Suspect likely contamination/dirty sample. She denies dysuria. Status: Acute (7) Diabetes mellitus: Insulin sliding scale. Status: Acute (8) Dementia: Status: Acute Attestations Medical Necessity Statement*: Admission for 2 midnights continued for assessment of management of acute hypoxia, pneumonitis, CHF. Coding Level of Care Code Acute Early Childhood Aide Classroom for [facility] Fwd Exam Comprehensive Diagnoses Hypoxia R09.02 CHF exacerbation I50.9 Multifocal atrial tachycardia I47.1 Leukocytosis D72.829 Troponin level elevated R79.89 Bacteriuria R82.71 Diabetes mellitus E11.9 Dementia F03.90
[2019-09-10] MEDS: heparin 5,000 unit/mL INJ 1 mL 5000 UNIT SUBCUT ×3 (04:05→21:08)
[2019-09-10 08:29] LABS: Influenza A by IFA Negative (Negative); Influenza B by IFA Negative (Negative)
[2019-09-10] MEDS: FUROsemide 10 mg/mL SDV 4mL 40 MG IVP (08:40)
[2019-09-10 08:49] LABS: Basophils # 0.1 10^3/uL (0.0-0.1); Basophils % 0.5 %; Eosinophils # 0.1 10^3/uL (0.0-0.8); Eosinophils % 0.5 %; Hematocrit 36.8 % (37.0-47.0); Hemoglobin 11.5 g/dL (11.5-15.3); Lymphocytes # 1.7 10^3/uL (0.8-4.8); Lymphocytes % 14.6 %; Mean Corpuscular HGB Conc 31.3 g/dL (30.0-36.0); Mean Corpuscular Hemoglobin 27.9 pg (28.0-34.0); Mean Corpuscular Volume 89.3 fL (81-99); Monocytes # 1.3 10^3/uL (0.2-0.9); Monocytes % 10.6 %; Neutrophils # 8.78 10^3/uL (1.8-7.7); Neutrophils % 73.5 %; Nucleated Red Blood Cells % 0 %; Platelet Count 291 10^3/cmm (130-400); Red Blood Count 4.12 10^6/uL (4.1-5.3); Red Cell Distribution Width 14.5 % (12.1-15.1); White Blood Count 11.9 10^3/uL (4.0-10.0)
[2019-09-10 09:16] LABS: Anion Gap 14.8 (5-19); Blood Urea Nitrogen 18 mg/dL (8-23); Calcium 8.6 mg/dL (8.5-10.5); Carbon Dioxide 31 mmol/L (22-29); Chloride 99 mmol/L (98-107); Creatinine Clr Calc Pharmacy 42.7144; Glucose 231 mg/dL (65-115); Osmolality Calculated 296 mOsm/kg (285-295); Potassium 3.8 mmol/L (3.5-5.1); Sodium 141 mmol/L (136-145)
--- NOTE | 2019-09-10 10:02 | PC.CHAP ---
Pastoral Care Encounter/Spiritual Assessment Type of Contact [] Declined database management system specialist visit [] Patient/Family/Request visit [] Outpatient visit [] Follow-up visit [] Physician referral [] Code/Alert [] Routine visit [] Staff referral [] Actively dying [] Patient sleeping [] Family support [] [] Out of room [] Palliative care [] [] Receiving care in room [] Pre-surgical visit [] Trauma [] Long length of stay [] ICU visit [X] Other:COVID PT. SKIPPED VISIT PER DIRECTIVE Relational/Emotional Strength [] Patient feels connected with others/family/visitors/staff [] Distress [] Loneliness/isolation [] Abandonment Spirituality of Patient [] Person of Natalia [] Attends Confucianist of their Natalia [] Believes in Prayer [] Reads Bible or Jewish materials [] There are Spiritual issues to be addressed Veterans Contact Representative Interventions [] Prayer [] Active listening [] Non-anxious presence [] Spiritual/emotional support [] Crisis/trauma care [] Spiritual counseling [] Bereavement support [] Provided bereavement packet [] Provided Bible/devotional materials [] Provided toy/stuffed animal, coloring book to patient or family member [] Provided Communion [] Anointing/[place] [] Salvation [] Completed spiritual assessment [] Other: Impact on Illness or Injury [] Angry [] Fearful [] Anxious [] Often cries [] Exhaustion [] Unable to work [] Unable to attend episcopalian [] Unable to walk/stand [] Unable to read [] Unable to drive [] Unable to eat/drink [] Unable to sleep [] Unable to be with family [] Patient intubated [] Other: Summary Time spent with patient
[2019-09-10 10:11] LABS: Lactic Sepsis W/Reflex 2.2 mmol/L (0.5-2.2)
[2019-09-10 10:40] LABS: Troponin 5 2HR 83.65 ng/L (0-10)
[2019-09-10 11:18] LABS: Troponin 5 2HR Delta 14.65 ABS# (0-10)
[2019-09-10 11:42] LABS: Reflex Lactate Order REFLEX LACTIC ORDERD
[2019-09-10 12:07] LABS: Troponin T (5th) Once 118 ng/L (0-10)
[2019-09-10 13:44] LABS: Lactic Acid level (Lactate) 0.2 mmol/L (0.5-2.2)
[2019-09-10] MEDS: dilTIAZem 30 mg Tablet 15 MG PO ×2 (15:00→21:09)
[2019-09-10 15:21] LABS: Procalcitonin 0.33 ng/mL (0-0.5); Thyroid Stimulating Hormone 0.56 uIU/mL (0.27-4.20)
[2019-09-10 15:32] LABS: Iron 31 ug/dL (37-145); Percent Saturation 16.4 % (20-50); Total Iron Binding Capacity 188 mcg/dl; Unsaturated Iron Binding 157 ug/dL (112-347)
[2019-09-10] MEDS: memantine 5 mg tablet 10 MG PO (18:21)
[2019-09-10 20:41] LABS: Glucose Point of Care 180 mg/dL (70-110)
--- NOTE | 2019-09-10 21:19 | PM.PN ---
Subjective Subjective: Interval history: Admitted overnight. Examination patient lying comfortably in bed. COVID-19 still awaiting. Patient is on 2 L nasal cannula saturating 96%. Denies of any chest pain. Complaining of mild shortness of breath. Vitals/I&O/Wt Last Vital Signs Temp 98.1 F 09/10/19 20:00 Pulse 94 09/10/19 20:00 Resp 18 09/10/19 20:00 BP 124/66 09/10/19 20:00 Pulse Ox 94 09/10/19 20:00 09/10/19 09/10/19 09/10/19 06:59 14:59 22:59 Intake Total 250 / 250 250 / 250 Balance 250 / 250 250 / 250 Weight last 48 hrs Weight 72.575 kg Physical Exam Const: COMMON NORMALS: no acute distress and patient oriented x3 HENMT: COMMON NORMALS: oropharynx normal Neck/C-Spine: COMMON NORMALS: no JVD Resp: COMMON NORMALS: normal respiratory effort and clear to auscultation bilaterally AUSCULTATION: clear to auscultation bilaterally Cardio: COMMON NORMALS: no JVD, regular rhythm, S1 normal heart sound present, S2 normal heart sound present and No murmurs present (Cardio) RHYTHM: regular rhythm HEART SOUNDS: S1 normal heart sound present and S2 normal heart sound present GI: COMMON NORMALS: Normal to inspection, nondistended, normoactive bowel sounds present, Soft to palpation and non-tender PALPATION: Yes Soft to palpation Extremity: COMMON NORMALS: no joint enlargement and no pedal edema Neuro: COMMON NORMALS: patient oriented x3 and moves all extremities Skin: COMMON NORMALS: no rashes or lesions noted GENERAL SKIN EXAM: no rashes or lesions noted Urinary Catheter Management^: Burnett: Cath Placed During This Visit: yes Reason for Continuing Indwelling Catheter: Other Urinary Catheter Date of Insertion: 09/10/19 Urinary Catheter Time of Insertion: 12:45 Data : 09/11/19 03:57 09/11/19 03:57 Micro: Microbiology 09/10/19 15:30 Bacterial Antigens - Final Urine,Clean Catch 09/10/19 15:30 Legionella Urinary Antigen - Final Urine Catheterized 09/10/19 10:25 Blood Culture - Preliminary Blood SPECIMEN COLLECTED 09/10/19 01:10 Blood Culture - Preliminary Blood SPECIMEN COLLECTED A&P Assessment and plan (1) Hypoxia: Suspected CHF, which appears to be new, with BNP elevation, peripheral edema, hypoxia, congestive changes cervical x-ray, but also with patchy interstitial infiltrates, concern for pneumonia. She herself denies any complaints, and after receiving Lasix in ER, and initial treatments, oxygenation has been improving. She denies any shortness of breath. Denies any chest pain. Says he remembers coughing in the morning. We do not have prior echocardiogram on file. We will need to obtain one to closer assess ventricular function, as well as any valvular abnormalities which may contribute to her symptoms, and because BNP elevation. Will trend troponin EKG to exclude myocardial ischemia as cause of CHF. Continue Lasix. Monitor I&O, renal function. Given bilateral patchy scattered infiltrates, hypoxia, will assess for COVID-19. Check rapid flu. Antibiotic coverage with Zosyn and vancomycin at this time. Will check urine bacterial antigens, MRSA PCR. Status: Acute (2) CHF exacerbation: No known prior history. Rule out acute ischemia. Additional assessment management as above. Status: Acute (3) Multifocal atrial tachycardia: Heart rates improved with improving oxygenation. Monitor. Not formally diagnosed with lung disease. May benefit from additional assessment by PFT after she recovers as possible underlying undiagnosed pulmonary disease may be triggering arrhythmia in addition to acute condition. Status: Acute (4) Leukocytosis: Secondary to suspected pneumonia. Urinalysis is dirty. Requested culture still be performed, if single organism isolated, may be useful. Status: Acute (5) Troponin level elevated: Mild elevation of troponin. She has no chest pain. Complete troponin EKG series. Additional assessment for CHF. If present, may benefit from additional assessment for coronary disease/risk stratification, if there is no non-STEMI. Status: Acute (6) Bacteriuria: Follow-up urine culture. Suspect likely contamination/dirty sample. She denies dysuria. Status: Acute (7) Diabetes mellitus: Insulin sliding scale. Status: Acute (8) Dementia: Status: Acute Attestations Medical Necessity Statement*: Hypoxic respiratory failure, CHF, atrial fibrillation Time Spent in Patient Care: Greater than 35 minutes Coding Level of Care Code Acute Studio Sales Associate for [facility] Fw Diagnoses Hypoxia R09.02 CHF exacerbation I50.9 Multifocal atrial tachycardia I47.1 Leukocytosis D72.829 Troponin level elevated R79.89 Bacteriuria R82.71 Diabetes mellitus E11.9 Dementia F03.90
[2019-09-10 21:59] LABS: Coronavirus Lab Test PTC SEE COMMENTS
[2019-09-11] VITALS (7 sets, daily range): BP systolic 104–129; BP diastolic 57–81; PULSE 64–116; RESP 16–18; TEMP 36.1–37; O2SAT 91–98
--- NOTE | 2019-09-11 03:29 | USCV_ITS ---
Theresa Brownlee Age: 84 Gender: F : 1935 Exam Date: 09/11/2019 10:05 Ordering Phys: Dave Lamar MD Technologist: Marium Rainey Exam Location: [facility] [place] Indication: CHF BP: 143 / 67 HR: 97 Rhythm: Sinus Technical Quality: Technically difficult study MEASUREMENTS (Male / Female) Normal Values 2D ECHO LV Diastolic Diameter PLAX 3.2 cm 4.2 - 5.9 / 3.9 - 5.3 cm LV Systolic Diameter PLAX 2.5 cm LV Chamber Size 3.5 cm IVS Diastolic Thickness 1.6 cm 0.6 - 1.0 / 0.6 - 0.9 cm IVS Systolic Thickness 1.9 cm LVPW Diastolic Thickness 0.6 cm 0.6 - 1.0 / 0.6 - 0.9 cm LVPW Systolic Thickness 0.8 cm RV Chamber Size 2.0 cm LVOT Diameter 1.7 cm LV Ejection Fraction 2D Teich 42.1 % LV Ejection Fraction MOD 2C 46.1 % LV Ejection Fraction 2C AL 48.0 % LA Diameter 3.9 cm LA Width 3.4 cm LA Height 5.5 cm RA Width 2.3 cm RA Height 4.5 cm M-MODE LV Diastolic Diameter MM 5.7 cm 4.2 - 5.9 / 3.9 - 5.3 cm LV Systolic Diameter MM 4.5 cm LV Ejection Fraction MM Teich 41.4 % IVS Diastolic Thickness MM 1.4 cm 0.6 - 1.0 / 0.6 - 0.9 cm IVS Systolic Thickness MM 1.7 cm LVPW Diastolic Thickness MM 1.6 cm 0.6 - 1.0 / 0.6 - 0.9 cm LVPW Systolic Thickness MM 1.6 cm Aortic Annulus Diameter 4.0 cm LA Ao Ratio MM 1.0 DOPPLER AV Peak Velocity 131.0 cm/s LVOT Peak Velocity 68.0 cm/s AV Area Cont Eq vti 1.1 cm squared AV Area Cont Eq pk 1.1 cm squared MV Area PHT 5.0 cm squared MV E' Velocity 11.0 cm/s Mitral E to MV E' Ratio 8.8 Mitral E to LV E' Lateral Ratio 7.3 Mitral E to LV E' Septal Ratio 11.4 TV Peak E Velocity 50.0 cm/s Right Atrial Pressure 3.0 mmHg FINDINGS Left Ventricle Normal left ventricular cavity size. Moderately decreased left ventricular systolic function. Left ventricular ejection fraction is estimated at 41 %. Global left ventricular hypokinesis. In the presence of atrial fibrillation diastolic function cannot be assessed accurately. Right Ventricle RVSP could not be calculated due to incomplete tricuspid regurgitation velocity profile. Right Atrium The right atrium is normal in size. Left Atrium Moderately increased left atrial size. Mitral Valve Moderately thickened mitral valve. No mitral valve stenosis. Moderate mitral valve regurgitation. Severe mitral annular calcification. Aortic Valve Severe aortic valve calcification. There appeared to be mild aortic valve stenosis visually however complete valve was not well visualized. Mild aortic valve regurgitation. Tricuspid Valve Structurally normal tricuspid valve without significant stenosis or regurgitation. Pulmonic Valve Structurally normal pulmonic valve without significant stenosis. There is no pulmonic regurgitation. Pericardium Normal pericardium without effusion. Aorta Normal ascending aorta dimension. CONCLUSIONS 1-Normal left ventricular cavity size. Moderately decreased left ventricular systolic function. Left ventricular ejection fraction is estimated at 41 %. Global left ventricular hypokinesis. In the presence of atrial fibrillation diastolic function cannot be assessed accurately. 2-RVSP could not be calculated due to incomplete tricuspid regurgitation velocity profile. 3-Moderately increased left atrial size. 4-Moderately thickened mitral valve. No mitral valve stenosis. Moderate mitral valve regurgitation. Severe mitral annular calcification. 5-Severe aortic valve calcification. There appeared to be mild aortic valve stenosis visually however complete valve was not well visualized. Mild aortic valve regurgitation. 6-There is no pericardial effusion. 7-Right atrial pressure is around 5 mm of mercury. 8-There are no prior echocardiogram studies to compare. Alfred Chirinos MD (Electronically Signed) Final Date: 11 September 2019 15:40 S
[2019-09-11 04:51] LABS: Basophils # 0.1 10^3/uL (0.0-0.1); Basophils % 0.6 %; Eosinophils # 0.2 10^3/uL (0.0-0.8); Hematocrit 38.2 % (37.0-47.0); Hemoglobin 12.3 g/dL (11.5-15.3); Lymphocytes # 2.7 10^3/uL (0.8-4.8); Lymphocytes % 25.5 %; Mean Corpuscular HGB Conc 32.2 g/dL (30.0-36.0); Mean Corpuscular Hemoglobin 28.7 pg (28.0-34.0); Mean Platelet Volume 11.5 fL (7.4-10.4); Monocytes # 1.5 10^3/uL (0.2-0.9); Monocytes % 13.9 %; Neutrophils # 6.06 10^3/uL (1.8-7.7); Neutrophils % 57.6 %; Nucleated Red Blood Cells % 0 %; Platelet Count 311 10^3/cmm (130-400); Red Blood Count 4.29 10^6/uL (4.1-5.3); Red Cell Distribution Width 14.2 % (12.1-15.1); White Blood Count 10.5 10^3/uL (4.0-10.0)
[2019-09-11 05:04] LABS: Cholesterol 213 mg/dL (0-200); HDL Cholesterol 41 mg/dL (60-100); LDL Cholesterol Calculated 123 mg/dL (50-129); Triglycerides 246 mg/dL (0-150); VLDL Cholestrol Calculation 49 mg/dL (0-30)
[2019-09-11 05:09] LABS: Alanine Aminotransferase 12 U/L (0-33); Albumin Level 3.3 g/dL (3.5-5.2); Alkaline Phosphatase 73 IU/L (35-105); Aspartate Amino Transferase 16 U/L (0-32); Blood Urea Nitrogen 15 mg/dL (8-23); Calcium 8.1 mg/dL (8.5-10.5); Carbon Dioxide 31 mmol/L (22-29); Chloride 95 mmol/L (98-107); Globulin 3.3 g/dL (1.3-4.6); Glucose 199 mg/dL (65-115); Osmolality Calculated 288 mOsm/kg (285-295); Sodium 138 mmol/L (136-145); Total Bilirubin 0.7 mg/dL (0.15-1.2); Total Protein 6.6 g/dL (6.6-8.7)
[2019-09-11] MEDS: heparin 5,000 unit/mL INJ 1 mL 5000 UNIT SUBCUT ×3 (05:37→22:21)
--- NOTE | 2019-09-11 06:00 | XRR_ITS ---
PROCEDURE INFORMATION: Exam: XR Chest, 1 View Exam date and time: 09/11/2019 7:19 AM Age: 84 years old Clinical indication: Shortness of breath; Additional info: Chf/pna TECHNIQUE: Imaging protocol: XR of the chest Views: 1 view. COMPARISON: CR XR chest 1V portable [id number] 09/09/2019 10:29 PM FINDINGS: Lungs: Emphysematous change and interstitial prominence. Worsening right basilar airspace disease. Pleural space: Asymmetric pleural effusions, right greater than left. Heart/Mediastinum: No cardiomegaly. Vasculature: Ectasia of the thoracic aorta. Bones/joints: Osteopenia and degenerative change. XR/XR chest 1V portable [id number] IMPRESSION: Worsening right basilar airspace disease.
[2019-09-11 06:38] LABS: Glucose Point of Care 182 mg/dL (70-110)
[2019-09-11] MEDS: FUROsemide 10 mg/mL SDV 4mL 40 MG IVP ×2 (08:38→17:08)
[2019-09-11] MEDS: memantine 5 mg tablet 10 MG PO ×2 (08:39→17:07)
[2019-09-11] MEDS: piperacillin-tazobactam 3.375 GM in sodium chloride 0.9% (plus) 50 ML IV ×2 (08:39→17:07)
[2019-09-11] MEDS: aspirin 81 mg EC Tablet PO (08:39)
[2019-09-11] MEDS: dilTIAZem 30 mg Tablet 15 MG PO ×2 (08:39→14:09)
[2019-09-11] MEDS: vancomycin 1,000 MG in sodium chloride 0.9% 250 ML 250 MG IV (10:11)
[2019-09-11 12:26] LABS: Glucose Point of Care 152 mg/dL (70-110)
--- NOTE | 2019-09-11 12:57 | CTR_ITS ---
PROCEDURE INFORMATION: Exam: CT Chest Without Contrast Exam date and time: 09/11/2019 1:08 PM Age: 84 years old Clinical indication: Shortness of breath; Patient HX: Nh PT w possible aspiration; Additional info: Possible aspiratiob TECHNIQUE: Imaging protocol: Computed tomography of the chest without contrast. Radiation optimization: All CT scans at this facility use at least one of these dose optimization techniques: automated exposure control; mA and/or kV adjustment per patient size (includes targeted exams where dose is matched to clinical indication); or iterative reconstruction. COMPARISON: CR XR chest 1V portable [id number] 09/11/2019 7:02 AM FINDINGS: Lungs: Interstitial prominence and bilateral airspace disease, the latter of which is disproportionately basilar in distribution. Chronic granulomatous disease, including a 3 mm calcified right middle lobe granuloma. Tracheobronchial calcification. Pleural space: Moderate-sized bilateral pleural effusions, right greater than left. Heart: Borderline cardiomegaly and coronary artery calcification. Aorta: Calcification and ectasia of the thoracic aorta. Lymph nodes: Calcified and noncalcified lymph nodes, the former which are associated with chronic granulomatous disease. Stomach and bowel: Marked bowel dilatation on the dynamometer repairer image, which can be better assessed with abdominal/pelvic CT, if clinically indicated. Bones/joints: Osteopenia and degenerative change. CT/CT chest wo con [id number] IMPRESSION: 1. Interstitial prominence and bilateral airspace disease, the latter which is disproportionately basilar in distribution. 2. Moderate-sized bilateral pleural effusions, right greater than left. 3. Marked bowel dilatation on the dynamometer repairer image, which can be better assessed with abdominal/pelvic CT, if clinically indicated. Radiation Dose CTDIVOL = (mGy): DLP = 576.4 (mGy-cm)
[2019-09-11] MEDS: potassium chloride ER 10 mEq Tablet 80 MEQ PO (14:10)
[2019-09-11 14:20] LABS: Troponin T (5th) Once 111 ng/L (0-10)
[2019-09-11 15:11] LABS: Glucose Point of Care 163 mg/dL (70-110)
[2019-09-11 17:02] LABS: Glucose Point of Care 167 mg/dL (70-110)
--- NOTE | 2019-09-11 17:11 | PM.PN ---
Subjective Subjective: Interval history: No acute events overnight. Patient has been doing better. She is satting 98% on 3 L nasal cannula. Labs, vitals, ins and outs noted. COVID-19 came back negative. Vitals/I&O/Wt Last Vital Signs Temp 97.0 F L 09/11/19 16:00 Pulse 93 09/11/19 16:00 Resp 16 09/11/19 16:00 BP 106/69 09/11/19 16:00 Pulse Ox 98 09/11/19 16:00 09/11/19 09/11/19 09/11/19 06:59 14:59 22:59 Intake Total 50 / 350 360 / 360 Output Total 1000 / 1000 Balance -950 / -650 360 / 360 Weight last 48 hrs Weight 69.626 kg Weight 72.575 kg Physical Exam Const: COMMON NORMALS: no acute distress and patient oriented x3 HENMT: COMMON NORMALS: oropharynx normal Neck/C-Spine: COMMON NORMALS: no JVD Resp: COMMON NORMALS: normal respiratory effort and clear to auscultation bilaterally AUSCULTATION: clear to auscultation bilaterally Cardio: COMMON NORMALS: no JVD, regular rhythm, S1 normal heart sound present, S2 normal heart sound present and No murmurs present (Cardio) RHYTHM: regular rhythm HEART SOUNDS: S1 normal heart sound present and S2 normal heart sound present GI: COMMON NORMALS: Normal to inspection, nondistended, normoactive bowel sounds present, Soft to palpation and non-tender PALPATION: Yes Soft to palpation Extremity: COMMON NORMALS: no joint enlargement and no pedal edema Neuro: COMMON NORMALS: patient oriented x3 and moves all extremities Skin: COMMON NORMALS: no rashes or lesions noted GENERAL SKIN EXAM: no rashes or lesions noted Urinary Catheter Management^: Burnett: Cath Placed During This Visit: yes Reason for Continuing Indwelling Catheter: Acute Urinary Retention or Obstruction Urinary Catheter Date of Insertion: 09/10/19 Urinary Catheter Time of Insertion: 12:45 Data : 09/11/19 03:57 09/11/19 03:57 Micro: Microbiology 09/10/19 10:25 Blood Culture - Preliminary Blood NEGATIVE TO DATE 09/09/19 22:05 Urine Culture - Preliminary Urine Catheterized Gram Negative Rods 09/10/19 01:10 Blood Culture - Preliminary Blood NEGATIVE TO DATE 09/10/19 15:30 Bacterial Antigens - Final Urine,Clean Catch 09/10/19 15:30 Legionella Urinary Antigen - Final Urine Catheterized A&P Assessment and plan (1) Hypoxia: Status: Acute (2) CHF exacerbation: No known prior history. Rule out acute ischemia. Additional assessment management as above. Status: Acute (3) Atrial fibrillation: Status: Acute (4) UTI (urinary tract infection): Status: Acute (5) Leukocytosis: Status: Acute (6) Bacteriuria: Follow-up urine culture. Suspect likely contamination/dirty sample. She denies dysuria. Status: Acute (7) NSTEMI (non-ST elevated myocardial infarction): Status: Acute (8) Troponin level elevated: Status: Acute (9) Diabetes mellitus: Insulin sliding scale. Status: Acute (10) Dementia: Status: Acute Additional A&P Information Hypoxia: Most likely because of CHF. Less likely pneumonia. COVID-19 has been ruled out. Stop isolation precautions. Patient was incontinent so was catheterized yesterday for better input and output assessment. Fluid restriction up to 1500 cc. Increase Lasix to 40 mg IV twice daily. Strict input output charting, daily weights. Patient has remained afebrile, procalcitonin negative, patient's white count has come down appropriately and 10.5 today. Urine culture growing gram-negative rods. We will stop vancomycin but continue Zosyn which will cover for possible aspiration pneumonia and UTI as well. Bacterial antigen, Legionella negative. We will also speech and swallow evaluation and advance diet accordingly. Oxygen supplementation keeping saturation over 92%. DuoNebs every 6 hours. Echocardiogram results shows an EF of 41% with global LV hypokinesia, dilated LA, moderate MR, mild AI. UTI: Urine culture growing gram-negative rods. Treatment as above. Continue Burnett catheter for now to monitor urine output. Atrial fibrillation: Continue home dose of Cardizem at 15 mg p.o. 3 times daily. Rate controlled for now. TSH normal. NSTEMI: Troponin elevated with significant delta. Add troponin to morning lab. Patient is not complain of chest pain. Lipid panel results appreciated. Deranged. Continue home dose of aspirin, start patient on atorvastatin. Case discussed with Dr. Chirinos. Will see patient. Type 2 diabetes mellitus: Continue with insulin sliding scale. Carb consistent diet. All natural . Heparin for DVT prophylaxis Attestations Medical Necessity Statement*: Hypoxia, CHF, atrial fibrillation, UTI, NSTEMI Time Spent in Patient Care: Greater than 35 minutes (>than 50% of time spent in counselling and/or direct pt care on unit). Coding Level of Care Code Acute Ring Conductor for [facility] Fwd Diagnoses Hypoxia R09.02 CHF exacerbation I50.9 Atrial fibrillation I48.91 UTI (urinary tract infection) N39.0 Leukocytosis D72.829 Bacteriuria R82.71 NSTEMI (non-ST elevated myocardial infarction) I21.4 Troponin level elevated R79.89 Diabetes mellitus E11.9 Dementia F03.90
--- NOTE | 2019-09-11 19:07 | P.CONIM_ITS ---
Providers/Reason For Consult Consulting Physican/Specialty*: Cardiology Reason for Consult*: Non-ST elevation IL New onset of heart failure Atrial fibrillation Attending Physician: Hong Lucas MD History of Present Illness History of Present Illness Theresa Brownlee is a 84 year old female who is intermediate resident past medical history significant for hypertension, dementia, chronic atrial fibrillation admitted with UTI worsening of confusion and A. fib with RVR. She was also noted to be in congestive heart failure. She was treated with IV diuresis and rate control through calcium channel hollis. She improved symptom gilliam with heart rate got under control while breathing also improved after diuresis however troponin increased from 60-118 and echocardiogram was suggestive of moderately depressed LV function at 41% there appeared to be a moderate mitral valve regurgitation with severe mitral annulus calcification mildly stenotic aortic valve with mild AI. It is the reason we have been asked to assist in her care. Patient responded to me in short sentences. She denied chest pain or history of chest pain. She denies any prior history of coronary artery disease. She is not a smoker. She says she is not much mobile and stays mostly in the bed and on chair at intermediate. Meds/Allergies Home Medications and Allergies Home Medications Medication Instructions Recorded Confirmed Last Taken Type Mylantex Double-Strength 400-4 30 ml PO PRN 08/30/19 09/10/19 Unknown History Refresh Tears See Rx Instructions .ROUTE .COMPLEX 08/30/19 09/10/19 Unknown History TwoCal HN 1 ea PO TID 08/30/19 09/10/19 08/29/19 History acetaminophen 500 mg PO TID 08/30/19 09/10/19 08/29/19 History acetaminophen [Tylenol] 325 mg PO Q4H PRN 08/30/19 09/10/19 Unknown History aspirin [Aspir-81] 81 mg PO DAILY 08/30/19 09/10/19 08/29/19 History bisacodyl 10 mg PO DAILY PRN 08/30/19 09/10/19 Unknown History diltiazem HCl 15 mg PO TID 08/30/19 09/10/19 08/29/19 History loratadine See Rx Instructions .ROUTE .COMPLEX 08/30/19 09/10/19 08/29/19 History losartan 50 mg PO DAILY 08/30/19 09/10/19 08/29/19 History magnesium hydroxide [Milk Of 30 ml PO DAILY PRN 08/30/19 09/10/19 Unknown History Magnesia Concentrated] memantine [Namenda] 10 mg PO BID 08/30/19 09/10/19 08/29/19 History sennosides-docusate sodium 1 tab-cap PO DAILY 08/30/19 09/10/19 08/29/19 History potassium chloride 20 meq PO DAILY 30 Days #60 tab 09/01/19 09/10/19 Unknown Rx Allergies Allergy/AdvReac Type Severity Reaction Status Date / Time ciprofloxacin [From Cipro] Allergy Unknown Verified 08/30/19 08:43 Current Medications Current Medications Generic Name Dose Route Start Last Admin Trade Name Freq PRN Reason Stop Dose Admin Aspirin 81 mg 09/11/19 09:00 09/11/19 08:39 Aspirin Ec PO 81 mg DAILY YORDAN Administration Diltiazem HCl 15 mg 09/10/19 15:00 09/11/19 14:09 Cardizem PO 15 mg TID YORDAN Administration Furosemide 40 mg 09/11/19 18:00 09/11/19 17:08 Lasix IVP 40 mg BID YORDAN Administration Heparin Sodium (Beef Lung) 5,000 unit 09/10/19 04:00 09/11/19 14:10 Heparin SUBCUT 5,000 unit Q8H YORDAN Administration Piperacillin Sod/Tazobactam 50 mls @ 12.5 mls/hr 09/10/19 06:00 09/11/19 17:07 Sod 3.375 gm/ Sodium Chloride IV 12.5 mls/hr Q8H YORDAN Administration Protocol Insulin Aspart 0 unit 09/10/19 18:00 09/11/19 18:11 Novolog SUBCUT 4 unit WM&BEDTIME YORDAN Administration Protocol Memantine 10 mg 09/10/19 18:00 09/11/19 17:07 Namenda PO 10 mg BID YORDAN Administration PFSH Acute PFSH: Medical History Atrial fibrillation Dementia Diabetes mellitus Currently diet controlled GERD (gastroesophageal reflux disease) Hypertension Iron deficiency Surgical History History of appendectomy Family History Mother Diabetes Father Cancer Social History Smoking and tobacco status: never smoked Alcohol intake: never Lives independently: No Housing: [facility] Vitals/I&O/Wt Last Vital Signs Temp 97.0 F L 09/11/19 16:00 Pulse 93 09/11/19 16:00 Resp 16 09/11/19 16:00 BP 106/69 09/11/19 16:00 Pulse Ox 98 09/11/19 16:00 09/11/19 09/11/19 09/11/19 06:59 14:59 22:59 Intake Total 50 / 350 360 / 360 60 / 420 Output Total 1000 / 1000 1600 / 1600 Balance -950 / -650 360 / 360 -1540 / -1180 Weight last 48 hrs Weight 153 lb 8 oz Weight 160 lb Physical Exam Narrative: EXAM NARRATIVE: GENERAL: Patient is alert, awake she is not well oriented but she knows she is in the hospital. She answer some question while at other she remains silent. She does not appear to be in distress. NECK: No jugular vein distension. HEENT: No cyanosis. No icterus. No pallor. HEART: Irregularly irregular S1 and S2. No murmur, rub or gallop. LUNGS: Clear to auscultate bilaterally. ABDOMEN: Soft, nontender and nondistended. Positive bowel sounds. No guarding, rebound or tenderness. CENTRAL NERVOUS SYSTEM: Grossly nonfocal. EXTREMITIES: Lower extremities without edema bilaterally. Urinary Catheter Management^: Burnett: Cath Placed During This Visit: yes Reason for Continuing Indwelling Catheter: Acute Urinary Retention or Obstruction Urinary Catheter Date of Insertion: 09/10/19 Urinary Catheter Time of Insertion: 12:45 Data Micro: Micro: Microbiology 09/10/19 10:25 Blood Culture - Pr eliminary Blood NEGATIVE TO BRYAN E 09/09/19 22:05 Urine Culture - Pr eliminary Urine Catheterize d Gram Negative R ods 09/10/19 01:10 Blood Culture - Pr eliminary Blood NEGATIVE TO BRYAN E 09/10/19 15:30 Bacterial Antigens - Final Urine,Clean Catch 09/10/19 15:30 Legionella Urinary Antigen - Final Urine Catheterize d A&P Assessment and plan (1) NSTEMI (non-ST elevated myocardial infarction): Patient may have underlying coronary artery disease which during this time of stress including sepsis and A. fib with RVR had become evident especially due to demand ischemia. Patient has advanced dementia she is a intermediate resident who is not very active in her lifestyle I would therefore try to treat her medically with conservative management unless she shows signs of decompensation with recurrent ischemia in that case we can discuss the option of invasive therapy. We will anticoagulate her. We will also add Plavix to the regimen. I will discontinue aspirin since combination of Plavix and anticoagulation can make her more prone to bleed. Status: Acute (2) CHF exacerbation: Patient is in systolic heart failure she has LV dysfunction with moderately depressed ejection fraction of 41%. She appears to be near euvolemic state continue IV Lasix 40 mg twice daily. Continue replenishing potassium Status: Acute Qualifiers: Heart failure type: systolic Qualified Code(s): I50.23 - Acute on chronic systolic (congestive) heart failure (3) Atrial fibrillation: In the presence of LV dysfunction and non-ST elevation IL I will switch her to beta-hollis from calcium channel hollis. Status: Acute Qualifiers: Atrial fibrillation type: longstanding persistent Qualified Code(s): I48.11 - Longstanding persistent atrial fibrillation (4) Mitral valve regurgitation: Patient has moderate mitral valve regurgitation most likely second to nonrheumatic calcified valve and also secondary to left ventricle moderate enlargement due to cardiomyopathy. Continue IV diuresis and rate control strategy. Status: Acute Qualifiers: Cardiac valve disease etiology: nonrheumatic Qualified Code(s): I34.0 - Nonrheumatic mitral (valve) insufficiency (5) Aortic stenosis: Patient has mild aortic stenosis with mild AI secondary to calcification. Currently we will monitor her. Status: Acute Qualifiers: Cardiac valve disease etiology: nonrheumatic Qualified Code(s): I35.0 - Nonrheumatic aortic (valve) stenosis Consult Attestations Medical Necessity Statement: Require continuation hospitalization for above defined care Coding Level of Care Code New Pt Acute Clinical Operations Manager for [facility] Patient Type New History Detailed Exam Detailed Medical Decision Making Moderate Complexity Diagnoses NSTEMI (non-ST elevated myocardial infarction) I21.4 CHF exacerbation I50.23 Heart failure type: systolic Atrial fibrillation I48.11 Atrial fibrillation type: longstanding persistent Mitral valve regurgitation I34.0 Cardiac valve disease etiology: nonrheumatic Aortic stenosis I35.0 Cardiac valve disease etiology: nonrheumatic
[2019-09-11 21:55] LABS: Glucose Point of Care 121 mg/dL (70-110)
[2019-09-11] MEDS: atorvastatin 40 mg Tablet 80 MG PO (22:21)
[2019-09-11] MEDS: pantoprazole DR 40 mg Tablet PO (22:21)
[2019-09-11] MEDS: clopidogrel 300 mg Tablet PO (22:21)
[2019-09-12] VITALS (9 sets, daily range): BP systolic 99–123; BP diastolic 56–75; PULSE 64–135; RESP 16–20; TEMP 36.2–37.1; O2SAT 94–97
[2019-09-12] MEDS: piperacillin-tazobactam 3.375 GM in sodium chloride 0.9% (plus) 50 ML IV ×3 (02:48→17:42)
[2019-09-12 03:07] LABS: Basophils # 0.1 10^3/uL (0.0-0.1); Basophils % 0.8 %; Eosinophils # 0.3 10^3/uL (0.0-0.8); Eosinophils % 2.2 %; Hematocrit 41.4 % (37.0-47.0); Lymphocytes # 2.9 10^3/uL (0.8-4.8); Lymphocytes % 25.4 %; Mean Corpuscular HGB Conc 31.4 g/dL (30.0-36.0); Mean Platelet Volume 10.9 fL (7.4-10.4); Monocytes # 1.4 10^3/uL (0.2-0.9); Monocytes % 12.7 %; Neutrophils # 6.66 10^3/uL (1.8-7.7); Neutrophils % 58.6 %; Nucleated Red Blood Cells % 0 %; Platelet Count 338 10^3/cmm (130-400); Red Blood Count 4.65 10^6/uL (4.1-5.3); Red Cell Distribution Width 14.1 % (12.1-15.1); White Blood Count 11.4 10^3/uL (4.0-10.0)
[2019-09-12 03:36] LABS: Alanine Aminotransferase 12 U/L (0-33); Albumin Level 3.4 g/dL (3.5-5.2); Alkaline Phosphatase 69 IU/L (35-105); Anion Gap 19.9 (5-19); Aspartate Amino Transferase 18 U/L (0-32); Blood Urea Nitrogen 17 mg/dL (8-23); Calcium 8.2 mg/dL (8.5-10.5); Carbon Dioxide 25 mmol/L (22-29); Chloride 96 mmol/L (98-107); Globulin 3.6 g/dL (1.3-4.6); Glucose 175 mg/dL (65-115); Osmolality Calculated 285 mOsm/kg (285-295); Potassium 3.9 mmol/L (3.5-5.1); Sodium 137 mmol/L (136-145); Total Bilirubin 0.8 mg/dL (0.15-1.2)
[2019-09-12 03:37] LABS: Vancomycin Trough 21.9 ug/mL (10-15)
[2019-09-12] MEDS: heparin 5,000 unit/mL INJ 1 mL 5000 UNIT SUBCUT ×3 (05:47→21:17)
[2019-09-12 06:31] LABS: Glucose Point of Care 150 mg/dL (70-110)
[2019-09-12] MEDS: FUROsemide 10 mg/mL SDV 4mL 40 MG IVP (08:28)
[2019-09-12] MEDS: memantine 5 mg tablet 10 MG PO ×2 (08:38→17:39)
[2019-09-12] MEDS: metoprolol succinate ER (24 HR) 25 mg Tablet 12.5 MG PO (08:38)
[2019-09-12] MEDS: pantoprazole DR 40 mg Tablet PO (08:39)
[2019-09-12 10:49] LABS: Glucose Point of Care 189 mg/dL (70-110)
--- NOTE | 2019-09-12 16:15 | P.PN_ITS ---
Subjective Subjective: Interval history: Theresa awakens easily. She denies any specific shortness of breath currently. Baseline confusion noted. Medications: Reviewed: Yes Vitals/I&O/Wt Last Vital Signs Temp 97.6 F 09/12/19 15:09 Pulse 74 09/12/19 15:09 Resp 20 H 09/12/19 15:09 BP 110/62 09/12/19 15:09 Pulse Ox 96 09/12/19 15:09 09/12/19 09/12/19 09/12/19 06:59 14:59 22:59 Intake Total 50 / 640 360 / 360 Output Total 1300 / 2900 450 / 450 Balance -1250 / -2260 -90 / -90 Weight last 48 hrs Weight 67.642 kg Weight 69.626 kg Physical Exam Narrative: EXAM NARRATIVE: General exam no apparent distress Cardiovascular irregular, irregular. No murmur Lungs clear Abdomen is soft with positive bowel sounds Extremities no cyanosis clubbing or edema Urinary Catheter Management^: Burnett: Cath Placed During This Visit: yes Reason for Continuing Indwelling Catheter: Accurate Measurement of Urinary Output in Critically Ill Patients Urinary Catheter Date of Insertion: 09/10/19 Urinary Catheter Time of Insertion: 12:45 Data : 09/12/19 02:47 09/12/19 02:47 Micro: Microbiology 09/12/19 12:54 Blood Culture - Preliminary Blood SPECIMEN COLLECTED 09/12/19 11:10 Blood Culture - Preliminary Blood SPECIMEN COLLECTED 09/09/19 22:05 Urine Culture - Final Urine Catheterized Escherichia coli 09/10/19 10:25 Blood Culture - Preliminary Blood Gram positive cocci A&P Assessment and plan (1) Hypoxia: Consistent with acute systolic congestive heart failure. Lasix 40 mg p.o. daily will be initiated Continue fluid restriction She is Covid 19 negative Echocardiogram demonstrated an EF of 40%, moderate MR Status: Acute (2) CHF exacerbation: See above Appreciate cardiology consultation Status: Acute Qualifiers: Heart failure type: systolic Qualified Code(s): I50.23 - Acute on chronic systolic (congestive) heart failure (3) Atrial fibrillation: Currently rate is slightly higher. Increase metoprolol to 12.5 mg twice daily Status: Acute Qualifiers: Atrial fibrillation type: longstanding persistent Qualified Code(s): I48.11 - Longstanding persistent atrial fibrillation (4) UTI (urinary tract infection): Continue Zosyn Urine culture demonstrated E. coli Status: Acute (5) Leukocytosis: 1 bottle blood culture gram-positive cocci. Likely contaminant. Repeat cultures drawn. Status: Acute (6) NSTEMI (non-ST elevated myocardial infarction): Appreciate cardiology consultation Continue Plavix, beta-hollis, statin Status: Acute (7) Diabetes mellitus: Insulin sliding scale. Status: Acute (8) Dementia: Status: Acute Additional A&P Information AND Heparin for DVT prophylaxis Attestations Medical Necessity Statement*: Needs continued hospitalization for adjustment of medications secondary heart failure as well as IV antibiotics for UTI Coding Level of Care Code Acute Final Block Press Operator for g Fwd Diagnoses Hypoxia R09.02 CHF exacerbation I50.23 Heart failure type: systolic Atrial fibrillation I48.11 Atrial fibrillation type: longstanding persistent UTI (urinary tract infection) N39.0 Leukocytosis D72.829 NSTEMI (non-ST elevated myocardial infarction) I21.4 Diabetes mellitus E11.9 Dementia F03.90
[2019-09-12 16:30] LABS: Glucose Point of Care 120 mg/dL (70-110)
[2019-09-12] MEDS: metoprolol tartrate 25 mg Tablet 12.5 MG PO (17:39)
--- NOTE | 2019-09-12 18:32 | PM.PN ---
Subjective Subjective: Interval history: Patient had episode of rapid ventricle response. Medications: Reviewed: Yes Vitals/I&O/Wt Last Vital Signs Temp 97.6 F 09/12/19 15:09 Pulse 74 09/12/19 15:09 Resp 20 H 09/12/19 15:09 BP 110/62 09/12/19 15:09 Pulse Ox 96 09/12/19 15:09 09/12/19 09/12/19 09/12/19 06:59 14:59 22:59 Intake Total 50 / 640 410 / 410 60 / 470 Output Total 1300 / 2900 450 / 450 200 / 650 Balance -1250 / -2260 -40 / -40 -140 / -180 Weight last 48 hrs Weight 149 lb 2 oz Weight 153 lb 8 oz Physical Exam Narrative: EXAM NARRATIVE: GENERAL: Patient is very sleepy and confused. NECK: No jugular vein distension. HEENT: No cyanosis. No icterus. No pallor. HEART: Irregularly irregular S1 and S2. No murmur, rub or gallop. LUNGS: Clear to auscultate bilaterally. ABDOMEN: Soft, nontender and nondistended. Positive bowel sounds. No guarding, rebound or tenderness. CENTRAL NERVOUS SYSTEM: Grossly nonfocal. EXTREMITIES: Lower extremities without edema bilaterally. Urinary Catheter Management^: Burnett: Cath Placed During This Visit: yes Reason for Continuing Indwelling Catheter: Accurate Measurement of Urinary Output in Critically Ill Patients Urinary Catheter Date of Insertion: 09/10/19 Urinary Catheter Time of Insertion: 12:45 Data : 09/12/19 02:47 09/12/19 02:47 Micro: Microbiology 09/11/19 18:52 MRSA Culture - Final Nose 09/12/19 12:54 Blood Culture - Preliminary Blood SPECIMEN COLLECTED 09/12/19 11:10 Blood Culture - Preliminary Blood SPECIMEN COLLECTED 09/09/19 22:05 Urine Culture - Final Urine Catheterized Escherichia coli 09/10/19 10:25 Blood Culture - Preliminary Blood Gram positive cocci A&P Assessment and plan (1) Atrial fibrillation: Atrial fibrillation with rapid ventricle response will titrate medicine. Will hold diuretics since she may be dry and increasing her heart rate. Status: Acute Qualifiers: Atrial fibrillation type: longstanding persistent Qualified Code(s): I48.11 - Longstanding persistent atrial fibrillation (2) Aortic stenosis: Continue to monitor mild aortic Status: Acute Qualifiers: Cardiac valve disease etiology: nonrheumatic Qualified Code(s): I35.0 - Nonrheumatic aortic (valve) stenosis (3) Mitral valve regurgitation: Stable. Status: Acute Qualifiers: Cardiac valve disease etiology: nonrheumatic Qualified Code(s): I34.0 - Nonrheumatic mitral (valve) insufficiency (4) NSTEMI (non-ST elevated myocardial infarction): Continue to manage conservatively Status: Acute (5) CHF exacerbation: Patient is rather overcompensated we will hold diuretics Status: Acute Qualifiers: Heart failure type: systolic Qualified Code(s): I50.23 - Acute on chronic systolic (congestive) heart failure Attestations Medical Necessity Statement*: Requires continuation hospitalization for above defined care for Coding Level of Care Code Established Pt Acute Pasting Inspector for [facility] Fwd Patient Type Established History Expanded Problem Focused Exam Expanded Problem Focused Medical Decision Making Moderate Complexity Diagnoses Atrial fibrillation I48.11 Atrial fibrillation type: longstanding persistent Aortic stenosis I35.0 Cardiac valve disease etiology: nonrheumatic Mitral valve regurgitation I34.0 Cardiac valve disease etiology: nonrheumatic NSTEMI (non-ST elevated myocardial infarction) I21.4 CHF exacerbation I50.23 Heart failure type: systolic
[2019-09-12 20:41] LABS: Glucose Point of Care 154 mg/dL (70-110)
[2019-09-12] MEDS: atorvastatin 40 mg Tablet 80 MG PO (21:17)
[2019-09-13] VITALS (7 sets, daily range): BP systolic 114–167; BP diastolic 64–72; PULSE 66–77; RESP 18–20; TEMP 36.4–36.8; O2SAT 94–100
[2019-09-13] MEDS: piperacillin-tazobactam 3.375 GM in sodium chloride 0.9% (plus) 50 ML IV ×3 (02:18→17:05)
[2019-09-13 05:29] LABS: Basophils # 0.1 10^3/uL (0.0-0.1); Eosinophils # 0.3 10^3/uL (0.0-0.8); Eosinophils % 3.1 %; Hematocrit 40.1 % (37.0-47.0); Hemoglobin 12.6 g/dL (11.5-15.3); Lymphocytes # 2.8 10^3/uL (0.8-4.8); Lymphocytes % 28.4 %; Mean Corpuscular HGB Conc 31.4 g/dL (30.0-36.0); Mean Corpuscular Hemoglobin 28.6 pg (28.0-34.0); Mean Corpuscular Volume 90.9 fL (81-99); Monocytes # 1.2 10^3/uL (0.2-0.9); Monocytes % 11.7 %; Neutrophils # 5.54 10^3/uL (1.8-7.7); Neutrophils % 55.6 %; Nucleated Red Blood Cells % 0 %; Platelet Count 320 10^3/cmm (130-400); Red Blood Count 4.41 10^6/uL (4.1-5.3); Red Cell Distribution Width 14.3 % (12.1-15.1)
[2019-09-13] MEDS: heparin 5,000 unit/mL INJ 1 mL 5000 UNIT SUBCUT ×3 (05:55→20:55)
[2019-09-13 06:08] LABS: Anion Gap 19.3 (5-19); Blood Urea Nitrogen 24 mg/dL (8-23); Calcium 8.6 mg/dL (8.5-10.5); Carbon Dioxide 26 mmol/L (22-29); Chloride 97 mmol/L (98-107); Glucose 146 mg/dL (65-115); Osmolality Calculated 287 mOsm/kg (285-295); Potassium 3.3 mmol/L (3.5-5.1); Sodium 139 mmol/L (136-145)
[2019-09-13 06:21] LABS: Glucose Point of Care 152 mg/dL (70-110)
[2019-09-13] MEDS: metoprolol tartrate 25 mg Tablet 12.5 MG PO ×2 (08:18→17:05)
[2019-09-13] MEDS: memantine 5 mg tablet 10 MG PO ×2 (08:18→17:05)
[2019-09-13] MEDS: clopidogrel 75 mg Tablet PO (08:18)
[2019-09-13] MEDS: FUROsemide 40 mg Tablet PO (08:18)
[2019-09-13] MEDS: pantoprazole DR 40 mg Tablet PO (08:18)
--- NOTE | 2019-09-13 09:14 | DCPLANNER ---
Pg 2 of IM explained to pt. It looks like admissions had explained the IM to who they thought was pt's (who has been for several years now) but it was likely her Son; Heraclio. Regardless pt appears to understand the message. Copy provided.
[2019-09-13] MEDS: ipratropium-albuterol 3 mL Neb INHALATION (10:10)
[2019-09-13 10:54] LABS: Glucose Point of Care 197 mg/dL (70-110)
[2019-09-13] MEDS: potassium chloride oral liq 20 mEq/15 mL UDC 40 MEQ PO (11:27)
--- NOTE | 2019-09-13 11:56 | PM.PN ---
Subjective Subjective: Interval history: Theresa reports she feels fine. No complaints. Medications: Reviewed: Yes Vitals/I&O/Wt Last Vital Signs Temp 97.7 F 09/13/19 11:22 Pulse 72 09/13/19 11:22 Resp 20 H 09/13/19 11:22 BP 118/64 09/13/19 11:22 Pulse Ox 95 09/13/19 11:22 09/12/19 09/13/19 09/13/19 22:59 06:59 14:59 Intake Total 350 / 760 50 / 810 120 / 120 Output Total 200 / 650 275 / 925 100 / 100 Balance 150 / 110 -225 / -115 Weight last 48 hrs Weight 65.816 kg Weight 67.642 kg Physical Exam Narrative: EXAM NARRATIVE: General exam no apparent distress Cardiovascular regular rate and rhythm . no murmur. Telemetry indicates controlled rate. Lungs clear Abdomen is soft with positive bowel sounds Extremities no cyanosis clubbing or edema Urinary Catheter Management^: Burnett: Cath Placed During This Visit: yes Reason for Continuing Indwelling Catheter: Acute Urinary Retention or Obstruction Urinary Catheter Date of Insertion: 09/10/19 Urinary Catheter Time of Insertion: 12:45 Data : 09/13/19 04:25 09/13/19 04:25 Micro: Microbiology 09/12/19 11:10 Blood Culture - Preliminary Blood NEGATIVE TO DATE 09/11/19 18:52 MRSA Culture - Final Nose 09/12/19 12:54 Blood Culture - Preliminary Blood SPECIMEN COLLECTED 09/09/19 22:05 Urine Culture - Final Urine Catheterized Escherichia coli 09/10/19 10:25 Blood Culture - Preliminary Blood Gram positive cocci A&P Assessment and plan (1) Hypoxia: Consistent with acute systolic congestive heart failure. Compensated currently with increasing creatinine. Hold any further diuresis Discontinue fluid restriction She is Covid 19 negative Echocardiogram demonstrated an EF of 40%, moderate MR Possible pneumonia. Currently on Zosyn. Afebrile. White blood cell count normal. On 3 L oxygen. Status: Acute (2) CHF exacerbation: See above Appreciate cardiology consultation Status: Acute Qualifiers: Heart failure type: systolic Qualified Code(s): I50.23 - Acute on chronic systolic (congestive) heart failure (3) Atrial fibrillation: Rate under much better control with metoprolol 12.5 mg twice daily Status: Acute Qualifiers: Atrial fibrillation type: longstanding persistent Qualified Code(s): I48.11 - Longstanding persistent atrial fibrillation (4) UTI (urinary tract infection): Continue Zosyn Urine culture demonstrated E. coli Status: Acute (5) Leukocytosis: 1 bottle blood culture gram-positive cocci. Likely contaminant. Repeat cultures drawn and negative to date White blood cell count now normal Status: Acute (6) NSTEMI (non-ST elevated myocardial infarction): Appreciate cardiology consultation Continue Plavix, beta-hollis, statin Status: Acute (7) Diabetes mellitus: Insulin sliding scale. Status: Acute (8) Dementia: Status: Acute Additional A&P Information Hypokalemia. Supplement potassium. Acute kidney injury. Hold diuretics. Repeat BMP tomorrow. AND Heparin for DVT prophylaxis Probable discharge back to [facility] tomorrow if kidney function stabilizes Attestations Medical Necessity Statement*: Needs continued hospitalization for IV antibiotics secondary to UTI, possible pneumonia and adjustment of medications for heart failure. Coding Level of Care Code Acute Doctor Of Radiology for [facility] Fwd Diagnoses Hypoxia R09.02 CHF exacerbation I50.23 Heart failure type: systolic Atrial fibrillation I48.11 Atrial fibrillation type: longstanding persistent UTI (urinary tract infection) N39.0 Leukocytosis D72.829 NSTEMI (non-ST elevated myocardial infarction) I21.4 Diabetes mellitus E11.9 Dementia F03.90
[2019-09-13 16:35] LABS: Glucose Point of Care 138 mg/dL (70-110)
[2019-09-13] MEDS: atorvastatin 40 mg Tablet 80 MG PO (20:27)
[2019-09-13 21:04] LABS: Glucose Point of Care 179 mg/dL (70-110)
--- NOTE | 2019-09-13 21:24 | PM.PN ---
Subjective Subjective: Interval history: Patient has waxing and waning confusion. She says she is not hurting anywhere she smiles when you talk with her Medications: Reviewed: Yes Vitals/I&O/Wt Last Vital Signs Temp 98.0 F 09/13/19 20:00 Pulse 70 09/13/19 20:00 Resp 18 09/13/19 20:00 BP 167/70 09/13/19 20:00 Pulse Ox 98 09/13/19 20:00 09/13/19 09/13/19 09/13/19 06:59 14:59 22:59 Intake Total 50 / 810 230 / 230 360 / 590 Output Total 275 / 925 100 / 100 500 / 600 Balance -225 / -115 130 / 130 -140 / -10 Weight last 48 hrs Weight 145 lb 1.6 oz Weight 149 lb 2 oz Physical Exam Narrative: EXAM NARRATIVE: GENERAL: Patient is awake but not well oriented she appeared to be confused but alert. NECK: No jugular vein distension. HEENT: No cyanosis. No icterus. No pallor. HEART: Irregularly irregular S1 and S2. No murmur, rub or gallop. LUNGS: Clear to auscultate bilaterally. ABDOMEN: Soft, nontender and nondistended. Positive bowel sounds. No guarding, rebound or tenderness. CENTRAL NERVOUS SYSTEM: Grossly nonfocal. EXTREMITIES: Lower extremities without edema bilaterally. Urinary Catheter Management^: Burnett: Cath Placed During This Visit: yes Reason for Continuing Indwelling Catheter: Acute Urinary Retention or Obstruction Urinary Catheter Date of Insertion: 09/10/19 Urinary Catheter Time of Insertion: 12:45 Data : 09/13/19 04:25 09/13/19 04:25 Micro: Microbiology 09/12/19 12:54 Blood Culture - Preliminary Blood NEGATIVE TO DATE 09/10/19 10:25 Blood Culture - Preliminary Blood Staphylococcus species 09/12/19 11:10 Blood Culture - Preliminary Blood NEGATIVE TO DATE 09/11/19 18:52 MRSA Culture - Final Nose A&P Assessment and plan (1) Atrial fibrillation: Stable continue rate control strategy Status: Acute Qualifiers: Atrial fibrillation type: longstanding persistent Qualified Code(s): I48.11 - Longstanding persistent atrial fibrillation (2) Aortic stenosis: Continue to monitor mild aortic Status: Acute Qualifiers: Cardiac valve disease etiology: nonrheumatic Qualified Code(s): I35.0 - Nonrheumatic aortic (valve) stenosis (3) Mitral valve regurgitation: Stable. Status: Acute Qualifiers: Cardiac valve disease etiology: nonrheumatic Qualified Code(s): I34.0 - Nonrheumatic mitral (valve) insufficiency (4) NSTEMI (non-ST elevated myocardial infarction): Continue to manage conservatively Status: Acute (5) CHF exacerbation: Patient is on dry side continue to hold diuretics since creatinine is worsening Status: Acute Qualifiers: Heart failure type: systolic Qualified Code(s): I50.23 - Acute on chronic systolic (congestive) heart failure Attestations Medical Necessity Statement*: Patient require continuation hospitalization for above defined care Coding Level of Care Code Established Pt Acute Oracle Database Analyst for Chg Fwd Patient Type Established History Expanded Problem Focused Exam Expanded Problem Focused Medical Decision Making Moderate Complexity Diagnoses Atrial fibrillation I48.11 Atrial fibrillation type: longstanding persistent Aortic stenosis I35.0 Cardiac valve disease etiology: nonrheumatic Mitral valve regurgitation I34.0 Cardiac valve disease etiology: nonrheumatic NSTEMI (non-ST elevated myocardial infarction) I21.4 CHF exacerbation I50.23 Heart failure type: systolic
[2019-09-14] VITALS: BP 166/72; PULSE 70; RESP 18; TEMP 36.8; O2SAT 92
[2019-09-14] MEDS: piperacillin-tazobactam 3.375 GM in sodium chloride 0.9% (plus) 50 ML IV ×2 (00:48→08:44)
[2019-09-14 04:00] VITALS: BP 143/79; PULSE 76; RESP 17; TEMP 36.8; O2SAT 93
[2019-09-14] MEDS: heparin 5,000 unit/mL INJ 1 mL 5000 UNIT SUBCUT (04:12)
[2019-09-14 06:00] LABS: Anion Gap 20.5 (5-19); Blood Urea Nitrogen 25 mg/dL (8-23); Calcium 9.4 mg/dL (8.5-10.5); Carbon Dioxide 27 mmol/L (22-29); Chloride 99 mmol/L (98-107); Glucose 163 mg/dL (65-115); Osmolality Calculated 296 mOsm/kg (285-295); Potassium 3.5 mmol/L (3.5-5.1); Sodium 143 mmol/L (136-145)
[2019-09-14 06:41] LABS: Glucose Point of Care 170 mg/dL (70-110)
[2019-09-14 07:12] VITALS: BP 125/74; PULSE 73; RESP 14; TEMP 36.2; O2SAT 97
[2019-09-14 07:57] VITALS: PULSE 76; RESP 16; O2SAT 94
[2019-09-14] MEDS: clopidogrel 75 mg Tablet PO (08:45)
[2019-09-14] MEDS: memantine 5 mg tablet 10 MG PO (08:45)
[2019-09-14] MEDS: pantoprazole DR 40 mg Tablet PO (08:45)
[2019-09-14] MEDS: metoprolol tartrate 25 mg Tablet 12.5 MG PO (08:45)
--- NOTE | 2019-09-14 09:32 | PC.NURSE ---
patient's IV went bad. Multiple nurses attempted an IV and were unsuccessful. greeting card writer notified Dr Esparza
[2019-09-14 10:56] VITALS: BP 119/72; PULSE 63; RESP 14; TEMP 36.6; O2SAT 97
--- NOTE | 2019-09-14 11:06 | P.DS_ITS ---
Discharge Providers Date of Admission: 09/10/19 02:01 Date of Discharge: September 14, 2019 Attending Provider at Admission: Dave Lamar Attending Provider at Discharge: Ramu Esparza MD Diagnoses at Discharge Discharge Diagnosis (1) Atrial fibrillation: Status: Acute Problem details: Rate controlled on metoprolol Qualifiers: Atrial fibrillation type: longstanding persistent Qualified Code(s): I48.11 - Longstanding persistent atrial fibrillation (2) Aortic stenosis: Status: Acute Qualifiers: Cardiac valve disease etiology: nonrheumatic Qualified Code(s): I35.0 - Nonrheumatic aortic (valve) stenosis (3) Mitral valve regurgitation: Status: Acute Qualifiers: Cardiac valve disease etiology: nonrheumatic Qualified Code(s): I34.0 - Nonrheumatic mitral (valve) insufficiency (4) NSTEMI (non-ST elevated myocardial infarction): Status: Acute Problem details: Treated medically. Addition of Plavix, high-dose statin, beta-hollis (5) CHF exacerbation: Status: Acute Qualifiers: Heart failure type: systolic Qualified Code(s): I50.23 - Acute on chronic systolic (congestive) heart failure Reason for Visit Reason for Visit: sob Hospital Course Hospital Course: Theresa is an 84-year-old white female who presented to the hospital with shortness of breath. There was concern for congestive heart failure. Troponin was elevated. Urinary tract infection was also noted. Pneumonia was suspected, possible aspiration. She was placed on Zosyn. Diuretics were initiated. Cardiology consultation was obtained secondary to elevated troponin. They believe the patient should be treated medically, and high-dose statin, beta-hollis and aspirin low-dose along with Plavix was initiated. Echocardiogram demonstrated reduced EF at 40%, mild aortic valve stenosis. By September 13 the patient was doing better. She was down to 2 L of oxygen per nasal cannula. She had no significant swelling on exam. It was thought she could be discharged to the nursing facility, for continued close monitoring. Physical Exam Narrative: EXAM NARRATIVE: General exam no apparent distress Cardiovascular regular rate and rhythm Lungs clear, diminished breath sounds bilaterally Abdomen is soft with positive bowel sounds Extremities no cyanosis clubbing or edema. Urinary Catheter Management^: Burntet: Cath Placed During This Visit: yes Reason for Continuing Indwelling Catheter: Other Urinary Catheter Date of Insertion: 09/10/19 Urinary Catheter Time of Insertion: 12:45 Discharge Data Data Completed and Pending: Completed Studies During Hospitalization Category Date Time Status CT chest wo con 7 1250 Routine Cat Scan 09/11/19 12:57 Completed XR chest 1V kim ble [id number] QAM Exams 09/11/19 06:00 Completed XR chest 1V kim ble [id number] Stat Exams 09/09/19 22:31 Completed CV echo complete* [id number] Routine Ultrasound 09/11/19 03:29 Completed Pending at discharge Category Date Time Status Blood Culture Sta t Lab 09/10/19 10:25 Results Blood Culture Sta t Lab 09/12/19 12:54 Results Sputum Culture an d Gram Stain Routi ne Lab 09/10/19 14:34 Uncollected Labs from last 24 hours 09/14/19 09/14/19 09/13/19 06:16 05:37 20:35 Sodium 143 Potassium 3.5 Chloride 99 Carbon Dioxide 27 Anion Gap 20.5 H BUN 25 H Creatinine 1.4 H Glucose 163 H POC Glucose 170 179 Calculated Osmolal ity 296 H Calcium 9.4 09/13/19 16:29 Sodium Potassium Chloride Carbon Dioxide Anion Gap BUN Creatinine Glucose POC Glucose 138 Calculated Osmolal ity Calcium Vitals: Last Vital Signs Temp 97.9 F 09/14/19 10:56 Pulse 63 09/14/19 10:56 Resp 14 09/14/19 10:56 BP 119/72 09/14/19 10:56 Pulse Ox 97 09/14/19 10:56 Discharge Plan Discharge Patient Disposition: Xfer SNF Condition: Stable Prescriptions: New atorvastatin 40 mg Tablet 80 mg PO BEDTIME Qty: 30 RF: 0 pantoprazole 40 mg Tablet,Delayed Release (Dr/Ec) 40 mg PO DAILY Qty: 30 RF: 0 clopidogrel 75 mg Tablet 75 mg PO DAILY Qty: 30 RF: 0 amoxicillin-pot clavulanate [Augmentin] 875-125 mg tablet 1 tab PO BID Qty: 6 RF: 0 furosemide [Lasix] 20 mg tablet 20 mg PO QAM Qty: 30 RF: 0 potassium chloride 10 mEq tablet extended release 10 meq PO DAILY Qty: 30 RF: 0 metoprolol tartrate 25 mg Tablet 12.5 mg PO BID Qty: 60 RF: 0 Continued acetaminophen [Tylenol] 325 mg Tablet 325 mg PO Q4H PRN (Reason: Pain) RF: 0 loratadine 5 mg/5 mL Solution See Rx Instructions .ROUTE .COMPLEX RF: 0 sennosides-docusate sodium 8.6-50 mg Tablet 1 tab-cap PO DAILY RF: 0 aspirin [Aspir-81] 81 mg Tablet,Delayed Release (Dr/Ec) 81 mg PO DAILY RF: 0 Refresh Tears 0.5 % Drops See Rx Instructions .ROUTE .COMPLEX RF: 0 bisacodyl 5 mg Tablet,Delayed Release (Dr/Ec) 10 mg PO DAILY PRN (Reason: Constipation) RF: 0 memantine [Namenda] 10 mg Tablet 10 mg PO BID RF: 0 magnesium hydroxide [Milk Of Magnesia Concentrated] 2,400 mg/10 mL Suspension 30 ml PO DAILY PRN (Reason: Constipation) RF: 0 TwoCal HN 0.08-2 gram-kcal/mL Liquid 1 ea PO TID RF: 0 Mylantex Double-Strength 400-4 30 ml PO PRN RF: 0 Discontinued losartan 50 mg Tablet 50 mg PO DAILY RF: 0 acetaminophen 500 mg Tablet 500 mg PO TID RF: 0 diltiazem HCl 30 mg Tablet 15 mg PO TID RF: 0 potassium chloride 10 mEq Tablet Extended Release 20 meq PO DAILY 30 Days Qty: 60 RF: 0 Discharge Orders: Discharge Order (Routine); Ordered 09/14/19 Ordered By: Ramu Esparza Discharge Diet: As Directed Discharge Activity: Increase activity as tolerated Patient Instructions: Heart Failure (DC), CHF Stoplight Activity Restrictions/Additional Instructions: Oxygen 2 L per nasal cannula titrate to keep sat greater than 92% Level 1 dysphagia diet with thin liquids Aspiration precautions To see primary care provider at nursing facility within the next 3 to 5 days BMP in 3 days Discharge Attestations Time Spent in Discharge Care*: greater than 30 min Quality Metrics Clinical Quality Measures During this hospital stay, did patient experience: AMI Clinical Trial Participant: No Contraindication to aspirin (AMI): Aspirin given Contraindication to statin: Statin prescribed Coding Level of Care Code Acute Civil Engineering Teacher for g Fwd Diagnoses Atrial fibrillation I48.11 Atrial fibrillation type: longstanding persistent Aortic stenosis I35.0 Cardiac valve disease etiology: nonrheumatic Mitral valve regurgitation I34.0 Cardiac valve disease etiology: nonrheumatic NSTEMI (non-ST elevated myocardial infarction) I21.4 CHF exacerbation I50.23 Heart failure type: systolic
[2019-09-14 11:32] LABS: Glucose Point of Care 190 mg/dL (70-110)
--- NOTE | 2019-09-14 11:52 | PC.NURSE ---
Rcvd verbal order from Dr Esparza to discontinue carter catheter and tell SNF in report to make sure patient urinates
--- NOTE | 2019-09-14 12:41 | PC.NURSE ---
called report to [facility], spoke with CHAD Gutierrez
--- NOTE | 2019-09-14 13:03 | PC.NURSE ---
carter catheter was removed at 1240.
--- NOTE | 2019-09-14 13:04 | PC.NURSE ---
patient transported to [facility] by [facility]
[2019-09-14 13:05] VITALS: BP 119/72; PULSE 63; RESP 14; TEMP 36.6; O2SAT 97
--- NOTE | 2019-09-14 22:05 | P.PN_ITS ---
Subjective Subjective: Interval history: Feeling much better and at her baseline of consciousness. Denies any complaint. Heart rate is under control Medications: Reviewed: Yes Vitals/I&O/Wt Last Vital Signs Temp 97.9 F 09/14/19 13:05 Pulse 63 09/14/19 13:05 Resp 14 09/14/19 13:05 BP 119/72 09/14/19 13:05 Pulse Ox 97 09/14/19 13:05 09/14/19 09/14/19 09/14/19 06:59 14:59 22:59 Intake Total 50 / 690 60 / 60 Output Total 275 / 875 Balance -225 / -185 60 / 60 Weight last 48 hrs Weight 147 lb 8 oz Weight 145 lb 1.6 oz Physical Exam Narrative: EXAM NARRATIVE: GENERAL: Patient is awake but not well oriented she appeared to be confused but alert. NECK: No jugular vein distension. HEENT: No cyanosis. No icterus. No pallor. HEART: Irregularly irregular S1 and S2. No murmur, rub or gallop. LUNGS: Clear to auscultate bilaterally. ABDOMEN: Soft, nontender and nondistended. Positive bowel sounds. No guarding, rebound or tenderness. CENTRAL NERVOUS SYSTEM: Grossly nonfocal. EXTREMITIES: Lower extremities without edema bilaterally. Urinary Catheter Management^: Burnett: Cath Placed During This Visit: yes, but has since been removed by the nurse Reason for Continuing Indwelling Catheter: Decision to DC Catheter Urinary Catheter Date of Insertion: 09/10/19 Urinary Catheter Time of Insertion: 12:45 Date Urinary Catheter Removed: 09/14/19 Time Urinary Catheter Discontinued: 13:04 Data : 09/13/19 04:25 09/14/19 05:37 A&P Assessment and plan (1) Atrial fibrillation: Rate controlled continue medicine Status: Acute Qualifiers: Atrial fibrillation type: longstanding persistent Qualified Code(s): I48.11 - Longstanding persistent atrial fibrillation (2) Aortic stenosis: Stable. Continue to monitor Status: Acute Qualifiers: Cardiac valve disease etiology: nonrheumatic Qualified Code(s): I35.0 - Nonrheumatic aortic (valve) stenosis (3) Mitral valve regurgitation: Stable. Status: Acute Qualifiers: Cardiac valve disease etiology: nonrheumatic Qualified Code(s): I34.0 - Nonrheumatic mitral (valve) insufficiency (4) NSTEMI (non-ST elevated myocardial infarction): Stable. Continue to manage conservatively patient is not a good candidate for intervention Status: Acute (5) CHF exacerbation: Well compensated. Status: Acute Qualifiers: Heart failure type: systolic Qualified Code(s): I50.23 - Acute on paper machine back tender colt systolic (congestive) heart failure Attestations Medical Necessity Statement*: As per medicine Coding Level of Care Code Established Pt Acute Investor for Chg Fwd Patient Type Established History Expanded Problem Focused Exam Expanded Problem Focused Medical Decision Making Moderate Complexity Diagnoses Atrial fibrillation I48.11 Atrial fibrillation type: longstanding persistent Aortic stenosis I35.0 Cardiac valve disease etiology: nonrheumatic Mitral valve regurgitation I34.0 Cardiac valve disease etiology: nonrheumatic NSTEMI (non-ST elevated myocardial infarction) I21.4 CHF exacerbation I50.23 Heart failure type: systolic
== END 2019-09-14 13:00 | disposition skilled nursing facility (03) | DRG 280 ==
LOC: ER 09-10 02:07 → MEDSURG 09-10 02:09
PROVIDERS: Emergency Medicine; Student in an Organized Health Care Education/Training Program; Admitting Provider Internal Medicine; Emergency Provider Nurse Practitioner Family; Visit Provider Internal Medicine
DX: I11.0 Hypertensive heart disease with heart failure (principal); I21.4 Non-ST elevation (NSTEMI) myocardial infarction; J69.0 Pneumonitis due to inhalation of food and vomit; I47.1 Supraventricular tachycardia; N39.0 Urinary tract infection, site not specified; I48.11 Longstanding persistent atrial fibrillation; N17.9 Acute kidney failure, unspecified; I50.23 Acute on chronic systolic (congestive) heart failure; I35.0 Nonrheumatic aortic (valve) stenosis; I34.0 Nonrheumatic mitral (valve) insufficiency; E11.9 Type 2 diabetes mellitus without complications; F03.90 Unspecified dementia, unspecified severity, without behavioral disturbance, psychotic disturbance, mood disturbance, and anxiety; T17.908A Unspecified foreign body in respiratory tract, part unspecified causing other injury, initial encounter; K21.9 Gastro-esophageal reflux disease without esophagitis; R82.71 Bacteriuria; E87.6 Hypokalemia; X58.XXXA Exposure to other specified factors, initial encounter
CPT/HCPCS: 12345; 36415; 36416; 36600; 51702; 71045; 71250; 80048; 80053; 80061; 80202; 81001; 81003; 82803; 82962; 83540; 83550; 83605; 83735; 83880; 84145; 84443; 84484; 85025; 86403; 87040; 87077; 87086; 87186; 87205; 87449; 87635; 87641; 87804; 92523; 92526; 92610; 93005; 93306; 94640; 94664; 96372; 96375; 99283; J1644; J1815; J1940; J2543; J3370; J7050